=== PATIENT | female | born 1955 | race Caucasian/White ===

== ENCOUNTER 2016-08-11 16:06 | Inpatient (IN) | payer OTHER ==
--- NOTE | ~2016-08-11 | CR72 ---
[facility] A Service of [facility] & [facility] RADIOLOGY TEXT RESULTS PATIENT: ROBERTH DAVIS LOCATION: SED : 54 UNIT #: [id number] AGE: [address]: Yuri Berumen DO SEX: F ORDER DR: [id number] [place] [id number] E MR#: [id number] Acc #: [id number] NAME: ROBERTH DAVIS : 1955 SEX: F STUDY DATE/TIME: 08/11/2016 15:34 UNIT: SED ROOM: STUDY DESCRIPTION: CR Chest Single View Portable Attending Physician: Yuri Berumen Referring Physician: Yuri Berumen Ordering Physician: Yuri Berumen Primary Care Physician: Frederick Salinas M.D. MEDICAL IMAGING REPORT This report is preliminary unless electronic signature is present. EXAM Portable chest. INDICATIONS Shortness of breath and cough today. COMPARISON Comparison with 02/17/2015. FINDINGS There is bilateral interstitial thickening of pulmonary vascular prominence. This suggest the possibility of interstitial edema. Correlate clinically. Heart size stable. IMPRESSION Bilateral interstitial thickening and pulmonary vascular prominence suggesting interstitial edema. Correlate clinically. Dictated by... Fidencio Zhang M.D. THIS IS AN ELECTRONICALLY VERIFIED REPORT Fidencio Zhang M.D. at 08/12/2016 9:36 AM ANGE/ingrid TD: 08/11/2016 17:43 JOB #: [id number] MEDICAL IMAGING REPORT Page 1 of 1
--- NOTE | ~2016-08-11 | TH ---
Unit #: [id number] #: [id number] Patient: ROBERTH DAVIS [id number] [address] [address] [id number] I MR#: [id number] NAME: ROBERTH DAVIS : 1955 SEX: F STUDY DATE/TIME: 08/14/2016 UNIT: [facility] ROOM: 564 STUDY DESCRIPTION: Dobutamine stress test Attending Physician: Hank Swift M.D. Primary Care Physician: Frederick Salinas M.D. CARDIOLOGY REPORT PROCEDURE PERFORMED Dobutamine Cardiolite stress test. PROCEDURE Using technetium 99m-labeled Cardiolite, rest and stress SPECT images were obtained. Multiple SPECT images were obtained in various views, including horizontal and vertical long axis and short axis views of the left ventricle. Images were obtained by gated SPECT method. The patient was administered 11.99 mCi of Cardiolite at rest. The patient was administered 35.7 mCi of Cardiolite at peak dobutamine infusion. On the stress images, there is normal perfusion noted. The rest images show normal perfusion. Comparing the rest and stress images, there is no stress-induced ischemia noted. The left ventricular ejection fraction is calculated to be 61%. There is no focal wall motion abnormality seen. CONCLUSION 1. No stress-induced ischemia noted. 2. The left ventricular ejection fraction is calculated to be 61%. 3. There is no focal wall motion abnormality seen. 4. Normal dobutamine Cardiolite stress test. Dictated by... Amanda Meyer/kasia TD: 08/14/2016 14:54 JOB #: [id number] CARDIOLOGY REPORT Page 1 of 1 X Yue Tavera MD <ELECTRONICALLY SIGNED> 11/11/16 1429 CARDIOLOGY REPORT
--- NOTE | ~2016-08-11 | EKG ---
PATIENT: ROBERTH DAVIS UNIT #: [id number] Ventricular Rate: 108 BPM Atrial Rate: 108 BPM P-R Interval: 176 ms QRS Duration: 68 ms Q-T Interval: 334 ms QTC Calculation(Bezet): 447 ms P [place]: 63 degrees Calculated R [place]: 93 degrees Calculated T [place]: 53 degrees Diagnosis Line: Sinus tachycardia with Premature atrial complexes Diagnosis Line: Rightward axis Diagnosis Line: Septal infarct , age undetermined Diagnosis Line: Abnormal ECG Diagnosis Line: When compared with ECG of 17-FEB-2015 08:36, Diagnosis Line: Premature atrial complexes are now Present Diagnosis Line: Confirmed by VICTOR M MARMOLEJO MD ([id number]) on 08/17/2016 Diagnosis Line: 11:55:21 AM INTERPRETING MD: FRANCIE WATTS
--- NOTE | ~2016-08-11 | DS ---
Unit #: [id number] #: [id number] Patient: MIKKI CARRENO [id number] [address] [address] [id number] I MR#: [id number] NAME: MIKKI CARRENO. ROOM: 564 Age: 61 Sex: F Admission Date: 08/11/2016 : 1955 Discharge Date: 08/14/2016 Attending Physician: Hank Swift M.D. Primary Care Physician: Frederick Salinas M.D. DISCHARGE SUMMARY FINAL DIAGNOSES 1. Acute hypoxic respiratory failure. 2. Acute bronchitis. 3. Acute exacerbation of chronic obstructive pulmonary disease. 4. Left ventricular ejection fraction of 55% to 60%. 5. Atypical chest pain, acute myocardial infarction ruled out. Patient is scheduled for stress test today. 6. Hypertension. 7. Nicotine abuse. 8. Mild diastolic congestive heart failure with ejection fraction of 55% to 60%. 9. Hyperlipidemia. DISCHARGE MEDICATIONS 1. Albuterol and Atrovent nebulizer treatment q.i.d. and q.4 p.r.n. 2. Symbicort 160/4.5 at 2 puffs q.12 hours. 3. Albuterol MDI 2 puffs q.6 p.r.n. 4. Prednisone tapering dose which is 20 mg for 2 days, 10 mg for 2 days, then 5 mg every other day. 5. Flexeril 10 mg at bedtime. 6. Zestril 40 mg daily. 7. Lasix continue home dose. 8. Nicotine 14 mg daily. 9. Seroquel 300 mg at bedtime. 10. Remeron 30 mg daily. CONSULTATIONS 1. Dr. Rodriguez from pulmonary services. 2. Dr. Tavera from cardiology services. HOSPITAL COURSE Miss Mikki Carreno is a 61-year-old female who was admitted with chest pain and shortness of breath and was diagnosed with acute hypoxic respiratory failure, acute bronchitis, and COPD exacerbation. Patient is doing much better. She was treated with IV Solu-Medrol and nebulizer treatment. Patient's O2 is 88% on walking. We are going to arrange for home O2. Acute UT was ruled out. Dr. Tavera was consulted. There is a question of mild diastolic congestive heart failure. She did receive IV Lasix in the beginning and later on changed to home dose. Patient is scheduled for stress test today. If stress test is normal, patient will be discharged home. This was discussed with Dr. Tavera. The plan of care was discussed with patient at length and tobacco Unit #: [id number] #: [id number] Patient: MIKKI CARRENO cessation counseling done. PHYSICAL EXAMINATION VITAL SIGNS: Blood pressure is 117/63, respiratory rate 16, pulse 96, and temperature 98.2. CHEST: Fair air entry. CARDIOVASCULAR: S1 and S2 positive. Regular rhythm. ABDOMEN: Soft. DIAGNOSTIC STUDIES LABORATORY ON DISCHARGE: WBC 11.9, hemoglobin 16.4, hematocrit 50.1, and platelet count is 217,000. Sodium 134, potassium 4.1, chloride 99, BUN 21, and creatinine 1. Liver enzymes are stable. Blood cultures no growth. Lipid profile shows total cholesterol of 245, triglycerides 115, LDL 181, and HDL 41. Influenza A and B were negative. TSH 0.61. IMAGING: Venous Doppler showed negative exam. CT chest was done that showed moderate centrilobular emphysema with small amount of right middle lobe atelectasis or scarring, mild aneurysmal dilatation of the aortic root at 4.1 cm, and suspected pulmonary hypertension. DISCHARGE INSTRUCTIONS 1. Patient is being discharged home if stress test is okay in stable condition. 2. Medications as per medication reconciliation. 3. Follow up with primary care provider in one week. 4. Follow up with Cardiology as scheduled. 5. 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 6. Patient's LDL is pretty high. She needs to be compliant with her cholesterol medications. I am not sure whether she is on, but she needs to be started. We are going to start Lipitor 40 mg at bedtime. Lab workup needs to be repeated in four to six weeks. 7. Tobacco cessation counseling done, and tobacco patches are being written. 1. Dictated by... Naomie Balderas M.D. Lisbeth TD: 08/15/2016 16:43 JOB #: [id number] DISCHARGE SUMMARY Page 1 of 1 X Naomie Balderas MD DISCHARGE SUMMARY
--- NOTE | ~2016-08-11 | CT57 ---
[facility] A Service of [facility] & [facility] RADIOLOGY TEXT RESULTS PATIENT: ROBERTH DAVIS LOCATION: [facility] 564-01 : 54 UNIT #: [id number] AGE: [address]: Hank Swift MD SEX: F ORDER DR: [id number] [facility] [address] [place], [place] [address] [id number] I MR#: [id number] Acc #: [id number] NAME: ROBERTH DAVIS. : 1955 SEX: F STUDY DATE/TIME: 08/12/2016 16:00 UNIT: [facility] ROOM: [facility] STUDY DESCRIPTION: CT Chest Wo Cont Attending Physician: Hank Swift M.D. Ordering Physician: Dulce Maria Rodriguez M.D. Primary Care Physician: Frederick Salinas M.D. MEDICAL IMAGING REPORT This report is preliminary unless electronic signature is present EXAM CT chest without contrast HISTORY Shortness of air starting yesterday. History of hypertension, anxiety and depression. TECHNIQUE Axial images performed through the chest without contrast. Multiplanar reconstructed images reviewed at a workstation. This CT exam was performed with one or more of the following radiation dose reduction techniques: automatic exposure control, adjustment of mA and/or kV according to patient size, and iterative reconstruction. FINDINGS The pulmonary parenchyma demonstrates hyperlucent areas within the lung apices and to a lesser extent mid-lung zones compatible with underlying centrilobular emphysema. Small amount of atelectasis or fibrosis noted right middle lobe. No acute airspace disease or consolidation. No mass lesions. No effusions. Mild trachea-bronchiomegaly. Aortic atherosclerotic changes with mild aneurysmal dilatation of the ascending thoracic aorta measuring about 4.1 cm. Enlargement of the pulmonary arteries suggest pulmonary hypertension. Heart size within normal limits. Extensive mitral annulus calcifications. Upper abdomen unremarkable. Osseous structures, thoracic inlet appear normal. IMPRESSION 1. Moderate centrilobular emphysema with a small amount of right middle lobe atelectasis or scarring. No acute airspace disease. 2. Mild aneurysmal dilatation of the aortic root at 4.1 cm[address] [facility] A Service of [facility] & [facility] RADIOLOGY TEXT RESULTS PATIENT: ROBERTH DAVIS LOCATION: [place] [address]- : [birth year] UNIT #: [id number] AGE: [address]: Hank Swift MD SEX: F ORDER DR: 3. Suspected pulmonary hypertension. Dictated by... Negro Zhang M.D. THIS IS AN ELECTRONICALLY VERIFIED REPORT Negro Zhang M.D. at 08/12/2016 8:37 PM Roscoe TD: 08/12/2016 19:28 JOB #: [id number] MEDICAL IMAGING REPORT Page 1 of 1 COPY
--- NOTE | ~2016-08-11 | EKG ---
PATIENT: ROBERTH DAVIS UNIT #: [id number] Ventricular Rate: 112 BPM Atrial Rate: 112 BPM P-R Interval: 156 ms QRS Duration: 82 ms Q-T Interval: 326 ms QTC Calculation(Bezet): 444 ms P [place]: 39 degrees Calculated R [place]: 95 degrees Calculated T [place]: 45 degrees Diagnosis Line: Sinus tachycardia with PAC's Diagnosis Line: Rightward axis Diagnosis Line: Nonspecific ST and T wave abnormality Diagnosis Line: Abnormal ECG Diagnosis Line: When compared with ECG of 12-AUG-2016 12:43, Diagnosis Line: Premature atrial complexes are no longer Present Diagnosis Line: Confirmed by LILIAN CUEVA MD ([id number]) on Diagnosis Line: 08/13/2016 12:53:13 PM INTERPRETING MD: ROSA
--- NOTE | ~2016-08-11 | CO ---
Unit #: [id number] #: [id number] Patient: ROBERTH DAVIS [id number] [address] [place], [place] [address] [id number] I MR#: [id number] NAME: ROBERTH DAVIS ROOM: 564 Age: 61 Sex: F Admission Date: 08/11/2016 : 1955 Attending Physician: Hank Swift M.D. Primary Care Physician: Frederick Salinas M.D. CONSULTATION REPORT CHIEF COMPLAINT Shortness of breath. HISTORY OF PRESENT ILLNESS This patient basically is a 61-year-old female with past medical history of likely COPD, who presented with complaint of shortness of breath, increasing sputum production for the last two to three days. Symptoms have been getting worse and was admitted and impression of COPD exacerbation. I am seeing the patient at bedside, complaining of shortness of breath. The patient denies any nausea, vomiting, diarrhea. PAST MEDICAL HISTORY COPD, anxiety, depression. SOCIAL HISTORY Positive smoking. No alcohol. No drug abuse. FAMILY HISTORY None as per record. ALLERGIES Have been reviewed. MEDICATION As per MAR, has been reviewed. REVIEW OF SYSTEMS Positive pallor. No edema. No signs of any jaundice. The rest are per history of present illness. The rest of a 12-point review of systems has been reviewed and is negative. PHYSICAL EXAMINATION VITAL SIGNS: Temperature 98. Pulse 87. Respiration 12. Blood pressure 130/70. NEUROLOGIC: Awake, alert, oriented. No neuro deficit. HEENT: PERRLA. NECK: Supple. CHEST: Bilateral air entry. Bilateral mild rhonchi. GASTROINTESTINAL: Nontender. Soft. Bowel sounds positive. EXTREMITIES: No edema. SKIN: No rash. LYMPHATIC: No lymphadenopathy. ASSESSMENT AND PLAN Unit #: [id number] #: [id number] Patient: ROBERTH DAVIS Acute exacerbation of COPD, acute bronchitis, acute hypoxic respiratory failure. Rule out pneumonia. The plan is to continue IV steroid, IV antibiotic, bronchodilator, GI and DVT prophylaxis, 2-D echo, Cardiology consultation. Please see orders for detailed plan. Dictated by... Amanda Lei TD: 08/12/2016 17:50 JOB #: [id number] CONSULTATION REPORT Page 1 of 1 X Dulce Maria Rodriguez MD CONSULTATION REPORT
--- NOTE | ~2016-08-11 | ST ---
Unit #: [id number] #: [id number] Patient: ROBERTH DAVIS [id number] [address] [address] [id number] I MR#: [id number] NAME: ROBERTH DAVIS : 1955 SEX: F STUDY DATE/TIME: 08/14/2016 UNIT: [facility] ROOM: 564 STUDY DESCRIPTION: Lexiscan stress test Attending Physician: Hank Swift M.D. Primary Care Physician: Frederick Salinas M.D. CARDIOLOGY REPORT PROCEDURE PERFORMED Lexiscan Cardiolite stress test. PROCEDURE Baseline EKG - Normal sinus rhythm with a rate of 98 beats per minute with premature atrial complexes. Rightward axis deviation. Lexiscan was injected, immediately followed by Cardiolite. The patient had no complaint of chest pain or palpitations. Complained of slight dizziness. EKG during Lexiscan showed no ST-T wave abnormalities. Was noted for frequent premature atrial complexes and isolated premature ventricular complex. There was a 3-beat run of PSVT at 150 beats per minute. Maximum blood pressure response was 126/77 mmHg. At the end of recovery blood pressure was 115/76 mmHg. Please correlate these results with nuclear images. Dictated by... London Ybarra A.P.R.N. for Amanda Meyer/kasia TD: 08/14/2016 14:05 JOB #: [id number] CARDIOLOGY REPORT Page 1 of 1 X London Ybarra APRN CARDIOLOGY REPORT
--- NOTE | ~2016-08-11 | EKG ---
PATIENT: ROBERTH DAVIS UNIT #: [id number] Ventricular Rate: 101 BPM Atrial Rate: 101 BPM P-R Interval: 164 ms QRS Duration: 68 ms Q-T Interval: 338 ms QTC Calculation(Bezet): 438 ms P Bishop: 61 degrees Calculated R [place]: 106 degrees Calculated T Bishop: 63 degrees Diagnosis Line: Sinus tachycardia with Premature atrial complexes Diagnosis Line: Rightward axis Diagnosis Line: Septal infarct , age undetermined Diagnosis Line: Abnormal ECG Diagnosis Line: When compared with ECG of 17-FEB-2015 08:36, Diagnosis Line: Premature atrial complexes are now Present Diagnosis Line: QRS axis Shifted right Diagnosis Line: QT has shortened Diagnosis Line: Confirmed by BALBINA WATTS, STEVEN ([id number]) on 08/12/2016 Diagnosis Line: 6:41:16 PM INTERPRETING MD: BALBINA WATTS
--- NOTE | ~2016-08-11 | HP ---
Unit #: [id number] #: [id number] Patient: ROBERTH DAVIS [id number] [address] [address] [id number] I MR#: [id number] NAME: ROBERTH DAVIS. ROOM: 564 Age: 61 Sex: F Admission Date: 08/11/2016 : 1955 Attending Physician: Hank Swift M.D. Primary Care Physician: Frederick Salinas M.D. HISTORY AND PHYSICAL CHIEF COMPLAINT Shortness of breath. HISTORY OF PRESENTING ILLNESS A 61-year-old female who was brought by paramedics because of the shortness of breath and wheezing. According to patient, it was just a few hours prior to coming to hospital. She started having shortness of breath and wheezing. The patient was given some Solu-Medrol nebulizer treatment by EMS. On arrival, at home, the patient's pulse ox was 88%. The patient had trouble breathing. She did not complain of chest pain. The patient did not complain of palpitations. The patient does not use oxygen at home. The patient does not have a nebulizer treatment at home. She has some inhalers at home. She has had cough recently. No history of fevers, chills or regurg. PAST MEDICAL HISTORY 1. Hypertension. 2. Diastolic congestive heart failure. 3. COPD. 4. Depression. PAST SURGICAL HISTORY History of knee surgery and oral surgery. SOCIAL HISTORY The patient is a smoker, has been smoking for more than 44 years. She was smoking more than one pack but, at this time, she has cut down to one pack per day. She also uses marijuana off and on. No history of IV drug abuse. No history of alcohol abuse. Primary care provider is Dr. Salinas. FAMILY HISTORY Not significant. HOME MEDICATIONS 1. Albuterol one inhaler q.4 p.r.n. 2. Lasix 10 mg daily. 3. Breo one inhaler daily. 4. Zestril 40 mg daily. 5. Norvasc 10 mg at bedtime. 6. Remeron 30 mg at bedtime. 7. Seroquel 300 mg at bedtime. 8. Flexeril 10 mg at bedtime. REVIEW OF SYSTEMS Unit #: [id number] #: [id number] Patient: ROBERTH DAVIS As per history of presenting illness. In addition, there is no history of any dizziness or syncopal episode. No history of fever, chills or regurg. No history of fever, chills or regurg. No history of ears/nose/throat problem, although she does get allergic rhinitis a lot. No complaint of abdominal pain. No complaint of abdominal pain. No complaint of nausea, vomiting, constipation or diarrhea. PHYSICAL EXAMINATION The patient was evaluated in room 564. VITAL SIGNS: Blood pressure 115/73. Respiratory rate 16. Pulse 86. Temperature 98.3. HEENT: Head is normocephalic. Eye movements are normal. Pale conjunctivae. NECK: Supple. No carotid bruit. No JVD elevation. CHEST: Decreased air entry bilateral. Rhonchi are present bilateral. CARDIOVASCULAR: S1, S2 positive. Regular rhythm. ABDOMEN: Nontender. Soft to touch. Bowel sounds are positive in all quadrants. EXTREMITIES: Negative edema. CENTRAL NERVOUS SYSTEM: Awake, alert, oriented x3. No focal neurological deficit. SKIN: No skin rashes. DIAGNOSTIC STUDIES LABORATORY: WBC 19.6, hemoglobin 16.7, hematocrit 50.2, platelet count 270. Troponin less than 0.05. Sodium 137, potassium 4.6, chloride 101, BUN 14, creatinine 0.9. Liver enzymes are normal. BNP elevated to 182. ABG, on admission, on room air, showed pH 7.34, pCO2 42, pO2 58.0, bicarb 21.9, oxygen saturation 86%. A repeat BNP on (1) was 376. Influenza A and B were negative. TSH was done which was 0.61. ASSESSMENT The patient is being admitted to telemetry unit with the diagnosis of: 1. Acute hypoxic respiratory failure. 2. Acute COPD exacerbation. 3. Acute bronchitis. 4. Mild diastolic congestive heart failure. 5. Hypertension. 6. Tobacco abuse. PLAN Admit to telemetry unit. Cardiology has been consulted. The patient has been placed on IV Lasix. Dr. Rodriguez has been consulted. The patient is on IV Solu-Medrol q.6 hourly and antibiotics. Continue mini neb treatment q.i.d. and q.4 p.r.n. Oxygen to keep saturation above 94%. DVT and GI prophylaxis is being start. Tobacco cessation counseling has been done. Nicotine patches will be prescribed. Plan of care has been discussed with patient at length. She does verbalize understanding. Dictated by Amanda Man TD: 08/13/2016 14:04 JOB #: [id number] Unit #: [id number] #: [id number] Patient: RYANROBERTH L HISTORY AND PHYSICAL Page 1 of 1 X Naomie Balderas MD HISTORY AND PHYSICAL
--- NOTE | ~2016-08-11 | CO ---
Unit #: [id number] #: [id number] Patient: ROBERTH DAVIS [id number] [address] [address] [id number] I MR#: [id number] NAME: ROBERTH DAVIS. ROOM: 564 Age: 61 Sex: F Admission Date: 08/11/2016 : 1955 Attending Physician: Hank Swift M.D. Primary Care Physician: Frederick Salinas M.D. Consultation Date: 08/12/2016 CONSULTATION REPORT REASON FOR CONSULTATION Questionable congestive heart failure. HISTORY OF PRESENT ILLNESS This is a 61-year-old white female who came to the emergency room because of shortness of breath and wheezing. She developed a cold on Sunday or Sunday of last week. She had a cough with brown to yellow sputum. It was felt she had a slight fever. She took Tylenol for relief. Yesterday her dyspnea worsened, therefore she presented to the emergency room for evaluation. She denied chest pain, palpitations or dizziness. Does report a right lower extremity edema but no paroxysmal nocturnal dyspnea or orthopnea. She has risk factors for ischemic heart disease and includes hypertension and nicotine abuse. No prior cardiac testing. PAST MEDICAL HISTORY 1. Hypertension. 2. COPD. 3. Nicotine abuse. PAST SURGICAL HISTORY 1. Knee surgery. 2. Oral surgery. SOCIAL HISTORY The patient continues to smoke a pack of cigarettes a day, cut down from close to two packs a day. She denies alcohol but uses marijuana on occasion. FAMILY HISTORY Negative for coronary artery disease. ALLERGIES Penicillin and tetracycline. HOME MEDICATIONS 1. Albuterol q.4 hours p.r.n. 2. Furosemide 10 mg daily. 3. Breo Ellipta 1 inhalation daily. 4. Lisinopril 20 mg daily. 5. Norvasc 10 mg q.h.s. REVIEW OF SYSTEMS CONSTITUTIONAL: Complains of subjective fever but no chills. Reports no weight gain or weight loss. Unit #: [id number] #: [id number] Patient: ROBERTH DAVIS HEENT: No headache, hearing or vision changes, difficulty with swallowing. No dizziness. CARDIOVASCULAR: Has no symptoms of angina. Denies palpitations. No paroxysmal nocturnal dyspnea or orthopnea. Denies syncope or near syncope. RESPIRATORY: Positive for dyspnea and productive cough with yellow to brown sputum. No hemoptysis. GASTROINTESTINAL: No abdominal pain, nausea, or vomiting. No constipation or melena. EXTREMITIES: Positive for right lower extremity edema. PHYSICAL EXAMINATION VITAL SIGNS: Blood pressure 115/73, heart rate 86, temperature 98.3. GENERAL: This is a pleasant 61-year-old mildly obese, white female, who is in no acute respiratory distress. NEUROLOGIC: She is awake, alert, and oriented. There are no focal weaknesses. NECK: Trachea is midline. No thyromegaly or lymphadenopathy. No jugular venous distention. HEART: S1, S2, heart sounds are normal. No murmurs, no rubs or clicks. Regular rate and rhythm. LUNGS: With scattered rhonchi with faint wheezes both lungs. ABDOMEN: Soft and nontender with bowel sounds are present. EXTREMITIES: With 1+ right lower extremity edema. No left lower extremity edema. DIAGNOSTIC STUDIES LABORATORY RESULTS: Glucose 146, BUN 21, creatinine 1.0, sodium 134, potassium 4.1. CK total 62. Troponin less than 0.03. BNP 376. White count 12.5, hemoglobin 16.0, hematocrit 49.0, platelet count 195. IMAGING STUDIES: Chest x-ray shows interstitial edema. CARDIOVASCULAR STUDIES: Electrocardiogram - EKG shows sinus tachycardia with a rate of 112 BPM with rightward axis deviation. Pulmonary disease pattern. There is frequent premature atrial complexes. Poor R wave progression. IMPRESSION 1. COPD exacerbation. 2. Questionable bronchitis. 3. Questionable mild congestive heart failure. 4. Hypertension. PLAN 1. Cardiology was consulted for possible congestive heart failure. Will check 2D echocardiogram to evaluate left ventricular systolic function. 2. Patient already started on IV diuretics. Will continue. 3. TSH and lipid profile will be checked. 4. Cause of lower extremity edema may be secondary to Norvasc. Will discontinue. 5. Check ultrasound of the lower extremities to rule out deep vein thrombosis. 6. Repeat cardiac enzymes and troponins. 7. Will follow the patient with you. Thank you for allowing us to assist with this patient's care. Unit #: [id number] #: [id number] Patient: ROBERTH DAVIS Dictated by... Ivana Sharif.P.RAlberN. for S. Amanda Gay/naldo TD: 08/15/2016 07:21 JOB #: [id number] CC: [facility] CONSULTATION REPORT Page 1 of 1 X London Ybarra APRN CONSULTATION REPORT
--- NOTE | ~2016-08-11 | US85 ---
[facility] A Service of [facility] RADIOLOGY TEXT RESULTS PATIENT: ROBERTH DAVIS LOCATION: [facility] : 53 UNIT #: [id number] AGE: [address]: Hank Swift MD SEX: F ORDER DR: [id number] [facility] [address] [place], [place] [address] [id number] I MR#: [id number] Acc #: [id number] NAME: ROBERTH DAVIS. : 1955 SEX: F STUDY DATE/TIME: 08/12/2016 UNIT: [facility] ROOM: [facility] STUDY DESCRIPTION: US LE Veins Unilat or Ltd Stdy Attending Physician: Hank Swift M.D. Primary Care Physician: Frederick Salinas M.D. MEDICAL IMAGING REPORT This report is preliminary unless electronic signature is present EXAM Right leg vein Doppler 08/12 at 1223 hours INDICATIONS Leg swelling for about the last 8 months. TECHNIQUE Venous ultrasound examination of the right lower extremity was performed using grayscale, spectral Doppler and color flow Doppler imaging. FINDINGS The examination is negative. There is no evidence of right lower extremity deep venous thrombus from the groin to the lower calf. Visualized greater saphenous vein is also patent. IMPRESSION Negative examination. No evidence of right lower extremity deep venous thrombosis. Dictated by... Johann Ryan Jr., M.D. THIS IS AN ELECTRONICALLY VERIFIED REPORT Johann Ryan Jr., M.D. at 08/15/2016 8:00 AM MARLI/haydee TD: 08/12/2016 16:04 JOB #: [id number] [facility] A Service [facility] RADIOLOGY TEXT RESULTS PATIENT: ROBERTH DAVIS LOCATION: [facility] : 53 UNIT #: [id number] AGE: [address]: Hank Swift MD SEX: F ORDER DR: MEDICAL IMAGING REPORT Page 1 of 1 COPY
[2016-08-11 15:30] LABS: BASOPHIL# 0.1 X10e3 (0-0.3); BASOPHIL% 0.5 % (0-2.5); EOSINOPHIL% 0.1 % (0.0-7.0); HEMATOCRIT 50.2 % (35.0-45.0); HEMOGLOBIN 16.7 gm/dL (12.0-16.0); LYMPHOCYTE# 0.4 X10e3 (1.0-3.5); LYMPHOCYTE% 2.2 % (17.0-45.0); MEAN CELL VOLUME 94.6 FL (83-96); MEAN CORPUSCULAR HEMOGLOBIN 31.5 PG (28-34); MEAN CORPUSCULAR HGB CONC 33.3 g/dL (30-36); MEAN PLATELET VOLUME 9.8 FL (6.5-11.5); MONOCYTE# 0.6 X10e3 (0-1.0); MONOCYTE% 3.3 % (3.0-12.0); NEUTROPHIL# 18.4 X10e3 (1.5-7.1); NEUTROPHIL% 93.9 % (40-75); PLATELET COUNT 217 X10e3 (140-420); RED BLOOD COUNT 5.31 X10e (3.90-5.30); RED CELL DISTRIBUTION WIDTH 13.2 % (11.0-15.5); WHITE BLOOD COUNT 19.6 X10e3 (4.0-10.5)
[2016-08-11 15:40] LABS: DIFF IND NO
[2016-08-11 15:43] LABS: POC - CKMB 1.4 ng/mL (0.0-7.9); POC - TROPONIN <0.05 ng/mL (<=0.05)
[2016-08-11 15:46] LABS: INR 1.1; PROTHROMBIN TIME (PATIENT) 12.6 SECONDS (9.5-12.4)
[2016-08-11 15:53] LABS: ALBUMIN SERUM 4.3 g/dL (3.5-5.0); BILIRUBIN, DIRECT 0.3 mg/dL (0.0-0.2); BILIRUBIN,INDIRECT 0.5 mg/dL (0.0-0.9); BILIRUBIN,TOTAL 0.8 mg/dL (0.2-2.0); BUN/CREATININE RATIO 15.55; CALCIUM SERUM 9.4 mg/dL (8.4-10.2); CREATININE SERUM 0.9 mg/dL (0.6-1.4); GLOM FILT RATE Estimated 68.6 mL/min (>60); PARTIAL THROMBOPLASTIN TIME 30.3 SECONDS (25.6-38.1); POTASSIUM 4.6 mmol/L (3.5-5.1); PROTEIN TOTAL SERUM 7.2 g/dL (6.0-8.3)
[~2016-08-11 16:06] MED LIST: ALBUTEROL17 GM INH; ALBUTEROL20 ml INH; BREO ELLIPTA I1 EACH INH; LASIX PO; LISINOPRIL PO; LOSARTAN-HCTZ1 EAC2 PO; MONOPRIL10 M1 DOB; MONOPRIL10 M1 PO; NORVASC PO; PHENERGAN/CODEINE PO; PREDNISONE10 MG PO; SEROQUEL XR200 MG PO; ZITHROMAX PO
[2016-08-11 16:19] LABS: ARTERIAL BLOOD GAS CARBOXY HB 6.7 %sat (0.0-9.0); ARTERIAL BLOOD GAS HCO3 21.9 mmol/L
[2016-08-11 16:25] LABS: ARTERIAL BLOOD GAS MET HB 0.5 %sat (0.0-2.0); ARTERIAL DRAW? YES
[2016-08-11 16:26] LABS: ARTERIAL BLOOD GAS ART SITE RIGHT RADIAL
[2016-08-11] MEDS ORDERED: REMERON30 MG PO (20:26)
[2016-08-11] MEDS ORDERED: SEROQUEL300 MG PO (20:26)
[2016-08-11] MEDS ORDERED: FLEXERIL10 MG PO (20:28)
[2016-08-12 05:21] LABS: MEAN CELL VOLUME 95.3 FL (83-96); MEAN CORPUSCULAR HGB CONC 32.5 g/dL (30-36); MEAN PLATELET VOLUME 10.4 FL (6.5-11.5); RED BLOOD COUNT 5.15 X10e (3.90-5.30); RED CELL DISTRIBUTION WIDTH 13.8 % (11.0-15.5); WHITE BLOOD COUNT 12.5 X10e3 (4.0-10.5)
[2016-08-12 05:56] LABS: BUN/CREATININE RATIO 14.44; CALCIUM SERUM 9.1 mg/dL (8.4-10.2); CREATININE SERUM 0.9 mg/dL (0.6-1.4); GLOM FILT RATE Estimated 68.6 mL/min (>60); POTASSIUM 4.3 mmol/L (3.5-5.1)
[2016-08-12 12:53] LABS: CK TOTAL 35 IU/L (26-140)
[2016-08-12 16:32] LABS: INFLUENZA A NEG (NEG); INFLUENZA B NEG (NEG)
[2016-08-12 18:51] LABS: MB 3.7 ng/ml
[2016-08-13 06:27] LABS: HEMATOCRIT 49.1 % (35.0-45.0); HEMOGLOBIN 15.8 gm/dL (12.0-16.0); MEAN CELL VOLUME 95.3 FL (83-96); MEAN CORPUSCULAR HEMOGLOBIN 30.8 PG (28-34); MEAN CORPUSCULAR HGB CONC 32.3 g/dL (30-36); RED BLOOD COUNT 5.15 X10e (3.90-5.30); RED CELL DISTRIBUTION WIDTH 13.4 % (11.0-15.5); WHITE BLOOD COUNT 14.2 X10e3 (4.0-10.5)
[2016-08-13 07:17] LABS: ALBUMIN SERUM 3.5 g/dL (3.5-5.0); BILIRUBIN,TOTAL 0.7 mg/dL (0.2-2.0); GLOM FILT RATE Estimated 60.4 mL/min (>60); POTASSIUM 4.1 mmol/L (3.5-5.1); PROTEIN TOTAL SERUM 6.4 g/dL (6.0-8.3)
[2016-08-14 05:54] LABS: HEMATOCRIT 50.1 % (35.0-45.0); HEMOGLOBIN 16.4 gm/dL (12.0-16.0); MEAN CELL VOLUME 94.7 FL (83-96); MEAN CORPUSCULAR HEMOGLOBIN 30.9 PG (28-34); MEAN CORPUSCULAR HGB CONC 32.7 g/dL (30-36); MEAN PLATELET VOLUME 9.8 FL (6.5-11.5); RED BLOOD COUNT 5.29 X10e (3.90-5.30); RED CELL DISTRIBUTION WIDTH 13.4 % (11.0-15.5); WHITE BLOOD COUNT 11.9 X10e3 (4.0-10.5)
[2016-08-14 10:29] LABS: CHOLESTEROL 245 mg/dL (0-200); HDL CHOLESTEROL 41 mg/dL (35-95); LDL/HDL RATIO 4 RATIO (0-4); TRIGLYCERIDES 115 mg/dL (10-160)
[2016-08-14 10:30] LABS: LDL CHOLESTEROL 181 mg/dL ([, -130])
[2016-08-14] MEDS ORDERED: NICOTINE TRANSD14 MG TOP (16:05)
[2016-08-14] MEDS ORDERED: LIPITOR40 MG PO (16:06)
[2016-08-14] MEDS ORDERED: SYMBICORT INH (16:06)
[2016-08-14] MEDS ORDERED: ALBUTEROL17 GM INH (16:09)
[2016-08-14] MEDS ORDERED: ALBUTEROL/ATROVENT NEB (16:12)
== END 2016-08-14 18:40 | disposition home or self-care (01) | DRG 291 ==
LOC: SED 16:06 → C5C 17:10
PROVIDERS: Emergency Medicine; Hospitalist; Internal Medicine; Internal Medicine Cardiovascular Disease
PROC: B246ZZZ Ultrasonography of Right and Left Heart (ICD-10-PCS; principal; 2016-08-12)
DX: I11.0 Hypertensive heart disease with heart failure (principal); J96.01 Acute respiratory failure with hypoxia; J44.1 Chronic obstructive pulmonary disease with (acute) exacerbation; J44.0 Chronic obstructive pulmonary disease with (acute) lower respiratory infection; I50.33 Acute on chronic diastolic (congestive) heart failure; J20.9 Acute bronchitis, unspecified; F17.210 Nicotine dependence, cigarettes, uncomplicated; Z88.0 Allergy status to penicillin; E78.5 Hyperlipidemia, unspecified
CPT/HCPCS: 36415; 36600; 71010; 71250; 78452; 80048; 80053; 80061; 80076; 82550; 82553; 82803; 83880; 84443; 84484; 85025; 85027; 85610; 85730; 87040; 87804; 93005; 93017; 93306; 93971; 94640; 94664; 94760; 96374; 99285; A9500; J0696; J1650; J1940; J2785; J2930

== ENCOUNTER 2016-09-05 15:23 | Inpatient (IN) | payer OTHER ==
--- NOTE | ~2016-09-05 | CR72 ---
[facility] A Service of [facility] RADIOLOGY TEXT RESULTS PATIENT: ROBERTH DAVIS LOCATION: [address] : [birth year] UNIT #: [id number] AGE: [address]: Naomie Balderas MD SEX: F ORDER DR: [id number] [facility] [address] [place], [place] [address] [id number] E MR#: [id number] Acc #: [id number] NAME: ROBERTH DAVIS : 1955 SEX: F STUDY DATE/TIME: 09/05/2016 16:07 UNIT: [facility] ROOM: STUDY DESCRIPTION: CR Chest Single View Portable Attending Physician: Daryn Cardenas M.D. Ordering Physician: Daryn Cardenas M.D. Primary Care Physician: Frederick Salinas M.D. MEDICAL IMAGING REPORT This report is preliminary unless electronic signature is present EXAM Portable chest, 09/05/2016. COMPARISON 08/11/2016 HISTORY Chest pain and short of air today. FINDINGS A portable view of the chest was obtained. The heart is mildly enlarged. There is a small left pleural effusion. The lungs are clear, and the bones are normal. IMPRESSION Small left pleural effusion and mild cardiomegaly. Otherwise, normal. Dictated by... Kirill Faustin M.D. THIS IS AN ELECTRONICALLY VERIFIED REPORT Kirill Faustin M.D. at 09/06/2016 8:41 AM LAZARA/regine TD: 09/05/2016 17:00 JOB #: [id number] MEDICAL IMAGING REPORT Page 1 of 1 COPY
--- NOTE | ~2016-09-05 | CR71 ---
[facility] A Service of [facility] RADIOLOGY TEXT RESULTS PATIENT: ROBERTH DAVIS LOCATION: [place] [address] : 53 UNIT #: [id number] AGE: [address]: Naomie Balderas MD SEX: F ORDER DR: [id number] [facility] [address] [place], [place] [address] [id number] I MR#: [id number] Acc #: [id number] NAME: ROBERTH DAVIS : 1955 SEX: F STUDY DATE/TIME: 09/06/2016 UNIT: [facility] ROOM: [facility] STUDY DESCRIPTION: CR Chest Single View Attending Physician: Naomie Balderas M.D. Ordering Physician: Naomie Balderas M.D. Primary Care Physician: Frederick Salinas M.D. MEDICAL IMAGING REPORT This report is preliminary unless electronic signature is present EXAM Chest portable 09/06/2016 11:54 hours HISTORY Central line placement today, shortness of air. COMPARISON 09/06/2016 07:12 hours FINDINGS Portable upright chest demonstrates a new right IJ catheter with tip in the mid SVC. There is no pneumothorax. There is stable cardiomegaly, elevation of the left hemidiaphragm, bilateral coarse interstitial edema and blunting of the left costophrenic sulcus. IMPRESSION 1. New right IJ catheter tip terminates in the mid SVC. There is no pneumothorax. 2. Stable cardiomegaly, coarse interstitial edema and left effusion. No change from earlier today at 07:12 hours. Dictated by... Solange Diaz M.D. THIS IS AN ELECTRONICALLY VERIFIED REPORT Solange Diaz M.D. at 09/06/2016 2:29 PM SMM/keli TD: 09/06/2016 12:17 JOB #: [id number] MEDICAL IMAGING REPORT Page 1 of 1 COPY
--- NOTE | ~2016-09-05 | CO ---
Unit #: [id number] #: [id number] Patient: ROBERTH DAVIS [id number] [address] [place], [place] [address] [id number] I MR#: [id number] NAME: ROBERTH DAVIS ROOM: [facility] Age: 61 Sex: F Admission Date: 09/05/2016 : 1955 Attending Physician: Naomie Balderas M.D. Primary Care Physician: Frederick Salinas M.D. Consultation Date: 09/05/2016 CONSULTATION REPORT REASON FOR CONSULTATION COPD exacerbation. CHIEF COMPLAINT Shortness of breath. 61-year-old female with past medical history of hypertension, diastolic heart failure, COPD, depression, presented to my office and was complaining of shortness of breath with elevated heart rate and sent her to the emergency room. She has been found to have pleural effusion and new atrial fibrillation with rapid ventricular rate. I am seeing her at the bedside. She is complaining of shortness of breath. REVIEW OF SYSTEMS Positive pallor. No edema, no cyanosis, no jaundice. The rest as per History of Present Illness. The rest of the twelve point review of systems has been reviewed and is negative. PAST MEDICAL HISTORY As described above. SURGICAL HISTORY Positive smoking. No alcohol, no drug abuse. FAMILY HISTORY None as per record. MEDICATIONS Has been reviewed. PHYSICAL EXAMINATION VITAL SIGNS: Temperature 98, pulse 110, respirations 16, blood pressure 110/70. NEUROLOGICAL: Awake, alert, oriented. No neuro deficit. HEENT: PERRLA. NECK: Supple. No JVD. CHEST: Bilateral air entry, bilateral mild rhonchi. GI: Nontender, soft. Bowel sounds positive. EXTREMITIES: No edema. SKIN: No rashes, no ulcers. LYMPHATIC: No lymphadenopathy. Unit #: [id number] #: [id number] Patient: ROBERTH DAVIS DIAGNOSTIC STUDIES IMAGING: Chest x-ray - small left pleural effusion with mild cardiomegaly. LABORATORY: The rest of the labs have been reviewed. ASSESSMENT AND PLAN 1. Acute hypoxic respiratory failure. 2. Acute exacerbation of chronic obstructive pulmonary disease. 3. Acute bronchitis. 4. Rapid atrial fibrillation. Plan is to continue Cardizem as per cardiology. Continue to monitor patient. Continue Solu-Medrol. Will add p.o. antibiotics. GI and DVT prophylaxis. Please see orders for detailed plan. Thank you very much for this consultation. We will continue to follow the patient. Dictated by... Amanda Lei TD: 09/07/2016 05:16 JOB #: [id number] CONSULTATION REPORT Page 1 of 1 X Dulce Maria Rodriguez MD X CONSULTATION REPORT
--- NOTE | ~2016-09-05 | DS ---
Unit #: [id number] #: [id number] Patient: ROBERTH DAVIS [id number] [address] [address] [id number] I MR#: [id number] NAME: ROBERTH DAVIS. ROOM: 560 Age: 61 Sex: F Admission Date: 09/05/2016 : 1955 Discharge Date: 09/11/2016 Attending Physician: Naomie Balderas M.D. Primary Care Physician: Frederick Salinas M.D. DISCHARGE SUMMARY DISCHARGE DIAGNOSES 1. Acute exacerbation of chronic obstructive pulmonary disease. 2. Atrial fibrillation with rapid ventricular response. 3. Continued tobacco use. 4. Acute kidney injury. 5. CONSULTING PHYSICIANS ON THIS HOSPITAL STAY 1. Dr. Rodriguez, pulmonary. 2. Dr. Devlin, nephrology. 3. Dr. Tavera. DIAGNOSTIC STUDIES IMAGING: Chest x-ray on admission - Small left pleural effusion. Mild cardiomegaly. Last chest x-ray from September 07 - No pneumothorax. Small bilateral pleural effusions. HISTORY OF PRESENT HOSPITAL STAY Please refer to H and P done by me for initial presentation on this female. ACTIVE PROBLEMS AND DIAGNOSES ON THIS HOSPITAL STAY A fib with RVR, status post cardiology evaluation. Started on sotalol. Started on Pradaxa. Currently stable from cardiology standpoint to be discharged. Outpatient followup with cardiology. Acute exacerbation of COPD. Was treated with bronchodilator, IV steroids. Currently switching to tapering dose of p.o. steroids per Dr. Rodriguez. Stable to be discharged. Tobacco use. Counselled on the importance of quitting tobacco and quitting smoking on multiple occasions by [place] and other consultants. Acute kidney injury. Resolved. Per Dr. Devlin, stable to be discharged. Discharge date BUN and creatinine 26 and 1.2. DISCHARGE MEDICATIONS 1. Tapering dose of prednisone. 2. Pradaxa 150 mg p.o. b.i.d. 3. Midodrine 5 mg p.o. t.i.d. 4. Sotalol 40 mg p.o. b.i.d. 5. Lanoxin 0.25 mg p.o. daily. Unit #: [id number] #: [id number] Patient: ROBERTH DAVIS 6. Lasix 40 mg daily. 7. Lipitor 40 mg at bedtime. 8. Flexeril 10 mg at bedtime. 9. Albuterol Combivent inhaler p.r.n. shortness of air. 10. Ventolin p.r.n. shortness of air. 11. Symbicort 2 puffs inhalation b.i.d. 12. Tylenol p.r.n. 13. Remeron 30 mg at bedtime. 14. Seroquel 300 mg at bedtime. 15. Nicotine patch daily. 16. Breo Ellipta inhaler daily. FOLLOW-UP 1. Patient to follow up with primary care physician in 2-3 days. 2. Outpatient followup with cardiology and pulmonary. Dictated by... Amanda Coyle/kasia TD: 09/11/2016 13:42 JOB #: [id number] DISCHARGE SUMMARY Page 1 of 1 X Hank Swift MD X DISCHARGE SUMMARY
--- NOTE | ~2016-09-05 | EKG ---
PATIENT: ROBERTH DAVIS UNIT #: [id number] Ventricular Rate: 113 BPM Atrial Rate: 90 BPM QRS Duration: 80 ms Q-T Interval: 324 ms QTC Calculation(Bezet): 444 ms Calculated R [place]: 106 degrees Calculated T [place]: 88 degrees Diagnosis Line: Atrial fibrillation with rapid ventricular Diagnosis Line: response Diagnosis Line: Rightward axis Diagnosis Line: Low voltage QRS Diagnosis Line: Poor R wave progression questionable lead position Diagnosis Line: or body habitus Diagnosis Line: Abnormal ECG Diagnosis Line: When compared with ECG of 07-SEP-2016 06:07, Diagnosis Line: (unconfirmed) Diagnosis Line: Nonspecific T wave abnormality, worse in Anterior Diagnosis Line: leads Diagnosis Line: Confirmed by LILIAN CUEVA MD ([id number]) on Diagnosis Line: 09/08/2016 7:41:24 AM INTERPRETING MD: ROSA
--- NOTE | ~2016-09-05 | EKG ---
PATIENT: ROBERTH DAVIS UNIT #: [id number] Ventricular Rate: 154 BPM Atrial Rate: 112 BPM QRS Duration: 70 ms Q-T Interval: 294 ms QTC Calculation(Bezet): 470 ms Calculated R [place]: 98 degrees Calculated T [place]: 124 degrees Diagnosis Line: Atrial fibrillation with rapid ventricular Diagnosis Line: response Diagnosis Line: Rightward axis Diagnosis Line: Septal infarct (cited on or before 05-SEP-2016) Diagnosis Line: Abnormal ECG Diagnosis Line: When compared with ECG of 13-AUG-2016 10:22, Diagnosis Line: Atrial fibrillation has replaced Sinus rhythm Diagnosis Line: Nonspecific T wave abnormality, worse in Inferior Diagnosis Line: leads Diagnosis Line: Nonspecific T wave abnormality now evident in Diagnosis Line: Lateral leads Diagnosis Line: Confirmed by VICTOR M MARMOLEJO MD ([id number]) on 09/07/2016 Diagnosis Line: 10:29:24 AM INTERPRETING MD: FRANCIE WATTS
--- NOTE | ~2016-09-05 | CR71 ---
[facility] A Service of [facility] & [facility] RADIOLOGY TEXT RESULTS PATIENT: ROBERTH DAVIS LOCATION: [address] : [birth year] UNIT #: [id number] AGE: [address]: Naomie Balderas MD SEX: F ORDER DR: [id number] [facility] [address] [place], [place] [address] [id number] I MR#: [id number] Acc #: [id number] NAME: ROBERTH DAVIS. : 1955 SEX: F STUDY DATE/TIME: 09/06/2016 7:12 UNIT: [facility] ROOM: [facility] STUDY DESCRIPTION: CR Chest Single View Attending Physician: Naomie Balderas M.D. Ordering Physician: Naomie Balderas M.D. Primary Care Physician: Frederick Salinas M.D. MEDICAL IMAGING REPORT This report is preliminary unless electronic signature is present EXAM Portable chest radiograph HISTORY Shortness of breath and respiratory distress beginning yesterday. FINDINGS An AP view is obtained and compared to the previous day's film of 09/05. Heart size in the patient appears enlarged but stable. There is a moderate-sized left pleural effusion that has increased. Lungs show evidence of bilateral interstitial infiltrates presumably interstitial edema. No other focal consolidation is seen. CONCLUSION Increasing left-sided pleural fluid. Continued interstitial infiltrates in the lungs likely pulmonary edema. Dictated by... Geronimo Cortez M.D. THIS IS AN ELECTRONICALLY VERIFIED REPORT Geronimo Cortez M.D. at 09/07/2016 7:25 AM Cammy TD: 09/06/2016 08:02 JOB #: [id number] MEDICAL IMAGING REPORT Page 1 of 1 COPY
--- NOTE | ~2016-09-05 | EKG ---
PATIENT: ROBERTH DAVIS UNIT #: [id number] Ventricular Rate: 115 BPM Atrial Rate: 326 BPM QRS Duration: 74 ms Q-T Interval: 302 ms QTC Calculation(Bezet): 417 ms Calculated R [place]: 102 degrees Calculated T [place]: 96 degrees Diagnosis Line: Atrial fibrillation with rapid ventricular Diagnosis Line: response Diagnosis Line: Rightward axis Diagnosis Line: Low voltage QRS Diagnosis Line: Septal infarct (cited on or before 11-SEP-2016) Diagnosis Line: Abnormal ECG Diagnosis Line: When compared with ECG of 09-SEP-2016 06:33, Diagnosis Line: No significant change was found Diagnosis Line: Confirmed by STEVEN MORTENSEN MD ([id number]) on 09/11/2016 Diagnosis Line: 9:59:25 PM INTERPRETING MD: BALBINA WATTS
--- NOTE | ~2016-09-05 | HP ---
Unit #: [id number] #: [id number] Patient: MIKKI CARRENO [id number] [address] [place], [place] [address] [id number] I MR#: [id number] NAME: MIKKI CARRENO ROOM: 547 Age: 61 Sex: F Admission Date: 09/05/2016 : 1955 Attending Physician: Naomie Balderas M.D. Primary Care Physician: Frederick Salinas M.D. HISTORY AND PHYSICAL ADMISSION DIAGNOSES 1. Acute exacerbation of chronic obstructive pulmonary disease. 2. New onset of atrial fibrillation with rapid ventricular response. HISTORY OF PRESENT ILLNESS Ms. Mikki Carreno is a 61-year-old female with the past medical history of hypertension, diastolic congestive heart failure, COPD, depression, who was apparently seen by Dr. Rodriguez as an outpatient today and was advised to come to emergency room secondary to increasing shortness of air, dyspnea and acute exacerbation of COPD. Patient was seen in the emergency room and along with the acute hypoxemic respiratory failure and acute exacerbation of COPD, patient was found with the pleural effusion and new onset of afib with RVR. She was started on Cardizem drip and currently getting admitted. Patient otherwise denies any chest pain, denies any headache, dizziness, fever, chills, nausea, vomiting, diarrhea or abdominal pain. REVIEW OF SYSTEMS A 12-point review of systems on this patient is basically negative except as above. PAST MEDICAL HISTORY As above in HPI. PAST SURGICAL HISTORY Past surgical history is significant for knee surgery and oral surgery. HOME MEDICATIONS I do not have in front of me but this will be clarified with the pharmacy and patient will be restarted accordingly. ALLERGIES Penicillin and tetracycline. SOCIAL HISTORY She is an active smoker and has been an active smoker all her life, denies any alcohol or IV drugs, uses marijuana occasionally. FAMILY HISTORY Otherwise unremarkable. PHYSICAL EXAMINATION GENERAL: On the physical exam she is a 61-year-old female not in acute Unit #: [id number] #: [id number] Patient: MIKKI CARRENO distress. VITAL SIGNS: BP 92/79. Heart rate 136. Respirations 21. Temperature 97.7. Sating 94% on 4 L. HEENT: Head is atraumatic. Pupils equal, round and reactive to light and accommodation. Extraocular muscles intact. Oropharynx clear. NECK: Supple. No mass. No JVD. No bruits. CHEST: Chest is diminished bilaterally with some expiratory wheezing. CARDIOVASCULAR EXAM: S1, S2, no murmurs. ABDOMEN: Abdomen is soft, nontender and nondistended. EXTREMITIES: Lower extremities without any significant cyanosis, clubbing or edema. NEUROLOGICAL: Patient grossly intact, without any focal deficits. DIAGNOSTIC STUDIES IMAGING: Chest x-ray shows small left pleural effusion with mild cardiomegaly. LABORATORY: Chemistry significant for creatinine of 1.6, sodium of 133, chloride 96. Coagulation panel: PT 11.6 and INR 1.1. Set of cardiac enzymes negative. Hematology unremarkable with a white count of 10, hemoglobin and hematocrit 14.5 and 44.4. ASSESSMENT AND PLAN 1. Acute exacerbation of chronic obstructive pulmonary disease: Continue bronchodilators, IV steroids per Dr. Rodriguez. 2. New onset of atrial fibrillation with rapid ventricular rate, was on Cardizem drip: Dr. Champagne to be followed, the consult has been placed. Will check the 2D echo. Will check TSH. 3. Continues tobacco use: Counseled on importance of quitting. 4. History of hypertension, now hypotensive: Continue per Cardiology. 5. GI and DVT prophylaxis: Will put on PPI and Lovenox. Dictated by Hank Swift M.D. OC/shea TD: 09/05/2016 21:12 JOB #: [id number] HISTORY AND PHYSICAL Page 1 of 1 X Hank Swift MD X HISTORY AND PHYSICAL
--- NOTE | ~2016-09-05 | CR72 ---
[facility] A Service of [facility] RADIOLOGY TEXT RESULTS PATIENT: ROBERTH DAVIS LOCATION: [place] [address] : [birth year] UNIT #: [id number] AGE: [address]: Naomie Balderas MD SEX: F ORDER DR: [id number] [facility] [address] [place], [place] [address] [id number] I MR#: [id number] Acc #: [id number] NAME: ROBERTH ADVIS. : 1955 SEX: F STUDY DATE/TIME: 09/07/2016 04:35 [facility] STUDY DESCRIPTION: CR Chest Single View Portable Attending Physician: Naomie Balderas M.D. Ordering Physician: Dulce Maria Rodriguez M.D. Primary Care Physician: Frederick Salinas M.D. MEDICAL IMAGING REPORT This report is preliminary unless electronic signature is present EXAM Portable chest 09/07/2016 at 04:35 INDICATION COPD. Shortness of air. Respiratory distress. FINDINGS AP portable chest compared with 09/06/2016. Cardiomegaly stable. Right IJ line in the SVC. There is emphysema. Infiltrate or atelectasis in both bases with small bilateral pleural effusions are again seen. These do not appear significantly changed. No pneumothorax. Dictated by... Johann Rayn Jr., M.D. THIS IS AN ELECTRONICALLY VERIFIED REPORT Johann Ryan Jr., M.D. at 09/07/2016 10:14 PM MARLI/nica TD: 09/07/2016 07:21 JOB #: [id number] MEDICAL IMAGING REPORT Page 1 of 1 COPY
--- NOTE | ~2016-09-05 | EKG ---
PATIENT: ROBERTH DAVIS UNIT #: [id number] Ventricular Rate: 135 BPM Atrial Rate: 87 BPM QRS Duration: 78 ms Q-T Interval: 296 ms QTC Calculation(Bezet): 444 ms Calculated R [place]: 116 degrees Calculated T [place]: 81 degrees Diagnosis Line: Atrial fibrillation with rapid ventricular Diagnosis Line: response Diagnosis Line: Right axis deviation Diagnosis Line: Low voltage QRS Diagnosis Line: Poor R wave progression questionable lead position Diagnosis Line: or body habitus Diagnosis Line: Abnormal ECG Diagnosis Line: When compared with ECG of 05-SEP-2016 15:54, Diagnosis Line: (unconfirmed) Diagnosis Line: Nonspecific T wave abnormality no longer evident Diagnosis Line: in Inferior leads Diagnosis Line: Nonspecific T wave abnormality no longer evident Diagnosis Line: in Lateral leads Diagnosis Line: Confirmed by LILIAN CUEVA MD ([id number]) on Diagnosis Line: 09/08/2016 7:38:05 AM INTERPRETING ELOY LEE
--- NOTE | ~2016-09-05 | CO ---
Unit #: [id number] #: [id number] Patient: ROBERTH CARRENO [id number] [address] [address] [id number] I MR#: [id number] NAME: ROBERTH CARRENO ROOM: [facility] Age: 61 Sex: F Admission Date: 09/05/2016 : 1955 Attending Physician: Naomie Balderas M.D. Primary Care Physician: Frederick Salinas M.D. Consultation Date: 09/06/2016 CONSULTATION REPORT REASON FOR THE CONSULT Acute kidney injury. HISTORY OF PRESENT ILLNESS Ms. Carreno is a very pleasant 61-year-old white female who was admitted to the hospital after seeing Dr. Rodriguez as an outpatient and complaining of shortness of breath. In the emergency room, she was found to have a COPD exacerbation, as well as new onset A fib. Patient's A fib did not improve with a Cardizem drip, and she had issues with hypotension, prompting her transfer to the ICU overnight. Patient did receive fluid boluses and now is on a Caesar-Synephrine drip. The Cardizem was stopped, and she has been switched over to amiodarone. We were asked to see for an abnormal creatinine this morning of 1.5. Previously, kidney numbers have been stable. She does have a history of hypertension and hyperlipidemia. She is on an JACKELYN inhibitor and a diuretic at home. She has occasional NSAID use at home but none recently. No history of kidney stones. No urinary complaints. PAST MEDICAL HISTORY Her past medical history is significant for COPD, diastolic congestive heart failure, hypertension, depression, hyperlipidemia, atrial fibrillation. PAST SURGICAL HISTORY She has had knee surgery and oral surgery, unknown type. HOME MEDS 1. Symbicort inhaler. 2. Ventolin inhaler. 3. Combivent inhaler. 4. Remeron 30 mg at bedtime. 5. Seroquel 300 mg at bedtime. 6. Flexeril 10 mg at bedtime. 7. Nicotine patch. 8. Lipitor 40 mg a day. 9. Albuterol inhaler. 10. Lasix 40 mg a day. 11. Breo inhaler. 12. Zestril 40 mg a day. 13. Norvasc 10 mg a day. ALLERGIES Penicillin and tetracycline. Unit #: [id number] #: [id number] Patient: ROBERTH CARRENO FAMILY HISTORY Family history is negative for any kidney disease. She denies any family history of dialysis or transplant. SOCIAL HISTORY The patient continues to smoke at least a pack of cigarettes per day. She does use marijuana. Denies IV drug use. No alcohol abuse. She has supportive family in the room today. REVIEW OF SYSTEMS A complete 12-point review of systems was completed with the above findings. In addition, she denies any headache or dizziness this morning. No nosebleeds, sore throat or earache. No chest pain. No hemoptysis. Some chronic cough. Shortness of breath has improved. No abdominal pain, nausea or vomiting. No dysuria or hematuria. She does have chronic swelling in her right leg greater than left. No rashes. No itching. No flank pain. No fevers. No chills. No night sweats or hot flashes. No intolerance to heat or cold. No bleeding issues. No recent weight changes. Unless otherwise indicated, the review of systems was negative. PHYSICAL EXAMINATION VITAL SIGNS: The patient is afebrile. Pulse 130, respiratory rate 21, blood pressure 104/72. Blood pressure got as low as 76/49. GENERAL: This is a pleasant 61-year-old white female, somewhat anxious, sitting up in bed but in no acute distress. HEENT: Head is atraumatic, normocephalic. Eyes show pink conjunctiva with no scleral icterus. No nasal drainage or nosebleeds. Oropharynx shows poor dentition, moist with no thrush. NECK: Neck shows no rigidity. CARDIOVASCULAR: Heart is tachycardic and irregular with distant S1, S2. No rub appreciated. RESPIRATORY: Lungs have diminished breath sounds bilaterally with no wheezing this morning. Breathing is nonlabored at rest. ABDOMEN: Abdomen is soft, nontender, nondistended. Bowel sounds are present. EXTREMITIES: Patient has no left lower extremity edema or cyanosis. Right lower extremity is edematous with 1+ edema, also no cyanosis. SKIN: Skin is dry with no rashes. MUSCULOSKELETAL: No joint effusions noted. No CVA tenderness to palpation. NEUROLOGIC: Cranial nerves are grossly intact with no gross motor deficits. LYMPHATIC EXAM: There is no neck cervical lymphadenopathy. PSYCHIATRIC EXAM: Mood and affect appear normal. Again, she is a little anxious. DIAGNOSTIC STUDIES LABS: CK level was 32. Troponin negative. Chemistry this morning - Sodium 133, potassium 4.6, chloride 100, bicarb 24, glucose 166, BUN 16, creatinine up to 1.5. BNP 400. CBC was unremarkable. Lactic acid was normal. Yesterday's creatinine was 1.6. Admission CBC was unremarkable. No previous urine studies. Prior creatinine on discharge August 13 was 1. IMAGING: Chest x-ray this morning showed some left pleural fluid and some pulmonary edema. Previous imaging was reviewed. Did not see any kidney imaging here at the hospital. She did have a lower extremity Doppler on August 12 of the right Unit #: [id number] #: [id number] Patient: ROBERTH CARRENO leg with no DVT found. ASSESSMENT AND PLAN 1. Acute kidney injury. This looks to be prerenal in nature from hypotensive issues with A fib and rapid ventricular response. She would have altered renal compensation on her home JACKELYN inhibitor use. Her JACKELYN inhibitor will be stopped. She is on Caesar support now for her hypotension. I will be getting urine studies for workup. If kidney function does not improve to previous baseline soon, we will also order imaging. Again, supportive care is in place. 2. Hypotension. This is improved off of Cardizem drip, and she is now on Caesar-Synephrine for blood pressure support. 3. Congestive heart failure, which is diastolic in nature. We will continue her Lasix based on her x-ray findings. 4. Tobacco abuse. Tobacco cessation counselling was given during my visit. 5. COPD. 6. A fib, now on amiodarone drip. 7. History of hypertension, off meds. 8. Patient has chronic edema in the right leg, more so than the left, with negative Dopplers last admission. This may be related to amlodipine use at home. I would like thank Dr. Swift for this consult and the opportunity to participate in the evaluation and care of Ms. Carreno. Dictated by... Reno Devlin Jr., M.D. ELIJAH/kasia TD: 09/06/2016 10:20 JOB #: [id number] CONSULTATION REPORT Page 1 of 1 X Reno Devlin MD X CONSULTATION REPORT
--- NOTE | ~2016-09-05 | EKG ---
PATIENT: ROBERTH DAVIS UNIT #: [id number] Ventricular Rate: 110 BPM Atrial Rate: 91 BPM QRS Duration: 74 ms Q-T Interval: 314 ms QTC Calculation(Bezet): 424 ms Calculated R [place]: 104 degrees Calculated T [place]: 97 degrees Diagnosis Line: Atrial fibrillation with rapid ventricular Diagnosis Line: response Diagnosis Line: Rightward axis Diagnosis Line: Low voltage QRS Diagnosis Line: Poor R wave progression questionable lead position Diagnosis Line: or body habitus Diagnosis Line: Abnormal ECG Diagnosis Line: When compared with ECG of 08-SEP-2016 05:42, Diagnosis Line: No significant change was found Diagnosis Line: Confirmed by LILIAN CUEVA MD ([id number]) on Diagnosis Line: 09/09/2016 1:52:54 PM INTERPRETING MD: ROSA
[~2016-09-05 15:23] MED LIST changes: +ALBUTEROL/ATROVENT NEB; +FLEXERIL10 MG PO; +LIPITOR40 MG PO; +NICOTINE TRANSD14 MG TOP; +REMERON30 MG PO; +SEROQUEL300 MG PO; +SYMBICORT INH
[2016-09-05 16:20] LABS: BASOPHIL% 0.5 % (0-2.5); EOSINOPHIL# 0.1 X10e3 (0-0.7); EOSINOPHIL% 0.8 % (0.0-7.0); HEMATOCRIT 44.4 % (35.0-45.0); HEMOGLOBIN 14.5 gm/dL (12.0-16.0); LYMPHOCYTE# 1.8 X10e3 (1.0-3.5); LYMPHOCYTE% 17.9 % (17.0-45.0); MEAN CORPUSCULAR HEMOGLOBIN 31.1 PG (28-34); MEAN CORPUSCULAR HGB CONC 32.8 g/dL (30-36); MEAN PLATELET VOLUME 9.8 FL (6.5-11.5); MONOCYTE# 0.9 X10e3 (0-1.0); MONOCYTE% 8.6 % (3.0-12.0); NEUTROPHIL# 7.3 X10e3 (1.5-7.1); NEUTROPHIL% 72.2 % (40-75); PLATELET COUNT 209 X10e3 (140-420); RED BLOOD COUNT 4.67 X10e (3.90-5.30); RED CELL DISTRIBUTION WIDTH 13.6 % (11.0-15.5); WHITE BLOOD COUNT 10.1 X10e3 (4.0-10.5)
[2016-09-05] MEDS ORDERED: PATIENT'S PHARMACY (16:20)
[2016-09-05 16:21] LABS: DIFF IND NO
[2016-09-05 16:29] LABS: POC - CKMB <1.0 ng/mL (0.0-7.9); POC - TROPONIN <0.05 ng/mL (<=0.05)
[2016-09-05 16:33] LABS: INR 1.1; PARTIAL THROMBOPLASTIN TIME 27.7 SECONDS (23.5-31.3); PROTHROMBIN TIME (PATIENT) 11.6 SECONDS (9.6-11.5)
[2016-09-05 16:44] LABS: ALBUMIN SERUM 3.7 g/dL (3.5-5.0); BILIRUBIN, DIRECT 0.2 mg/dL (0.0-0.2); BILIRUBIN,INDIRECT 0.8 mg/dL (0.0-0.9); BUN/CREATININE RATIO 9.37; CREATININE SERUM 1.6 mg/dL (0.6-1.4); GLOM FILT RATE Estimated 34.2 mL/min (>60); PROTEIN TOTAL SERUM 6.4 g/dL (6.0-8.3)
[2016-09-06 05:59] LABS: HEMATOCRIT 41.7 % (35.0-45.0); HEMOGLOBIN 13.8 gm/dL (12.0-16.0); MEAN CELL VOLUME 94.8 FL (83-96); MEAN CORPUSCULAR HEMOGLOBIN 31.4 PG (28-34); MEAN CORPUSCULAR HGB CONC 33.2 g/dL (30-36); MEAN PLATELET VOLUME 9.6 FL (6.5-11.5); RED BLOOD COUNT 4.4 X10e (3.90-5.30); RED CELL DISTRIBUTION WIDTH 13.3 % (11.0-15.5); WHITE BLOOD COUNT 6.8 X10e3 (4.0-10.5)
[2016-09-06 07:30] LABS: BUN/CREATININE RATIO 10.66; CALCIUM SERUM 8.4 mg/dL (8.4-10.2); CREATININE SERUM 1.5 mg/dL (0.6-1.4); POTASSIUM 4.6 mmol/L (3.5-5.1)
[2016-09-06 08:05] LABS: CK TOTAL 32 IU/L (26-140)
[2016-09-06 11:33] LABS: URINE APPEARANCE CLEAR; URINE BILIRUBIN NEG (NEG); URINE BLOOD NEG (NEG); URINE COLOR YELLOW; URINE GLUCOSE 100 MG/DL (NEG); URINE KETONE NEG (NEG); URINE LEUKOCYTE ESTERASE 2+ (NEG); URINE NITRATE NEG (NEG); URINE PROTEIN NEG (NEG); URINE SPECIFIC GRAVITY 1.009 (1.003-1.035); URINE UROBILINOGEN 0.2 MG/DL (NEG)
[2016-09-06 11:36] LABS: CULTURE INDICATED? YES; URBCS1 AUWI 0-2 /[HPF] (0-2); URINE BACTERIA AUWI NEG (NEGATIVE); URINE SQUAMOUS EPITHELIAL CELL OCC /[HPF]
[2016-09-06 13:14] LABS: CK TOTAL 29 IU/L (26-140)
[2016-09-06 17:22] LABS: CREATININE,RANDOM URINE 59 mg/dL; SODIUM URINE RANDOM 54 mmol/L
[2016-09-07 03:36] LABS: DIFF IND NO; HEMOGLOBIN 13.1 gm/dL (12.0-16.0); LYMPHOCYTE# 0.5 X10e3 (1.0-3.5); LYMPHOCYTE% 5.3 % (17.0-45.0); MEAN CELL VOLUME 94.9 FL (83-96); MEAN CORPUSCULAR HEMOGLOBIN 31.1 PG (28-34); MEAN CORPUSCULAR HGB CONC 32.8 g/dL (30-36); MEAN PLATELET VOLUME 9.7 FL (6.5-11.5); MONOCYTE# 0.3 X10e3 (0-1.0); MONOCYTE% 3.1 % (3.0-12.0); NEUTROPHIL% 91.6 % (40-75); PLATELET COUNT 168 X10e3 (140-420); RED BLOOD COUNT 4.22 X10e (3.90-5.30); RED CELL DISTRIBUTION WIDTH 13.5 % (11.0-15.5); WHITE BLOOD COUNT 8.7 X10e3 (4.0-10.5)
[2016-09-07 04:05] LABS: ALBUMIN SERUM 3.4 g/dL (3.5-5.0); BILIRUBIN,TOTAL 0.5 mg/dL (0.2-2.0); BUN/CREATININE RATIO 13.33; CALCIUM SERUM 8.4 mg/dL (8.4-10.2); CREATININE SERUM 1.5 mg/dL (0.6-1.4); MAGNESIUM 2.1 mg/dL (1.6-3.0); POTASSIUM 4.4 mmol/L (3.5-5.1); PROTEIN TOTAL SERUM 5.5 g/dL (6.0-8.3)
[2016-09-07 05:11] LABS: ARTERIAL BLD GAS O2 SATURATION 96.6 % (90.0-100.0); ARTERIAL BLOOD GAS CARBOXY HB 0.8 %sat (0.0-9.0); ARTERIAL BLOOD GAS HCO3 26.1 mmol/L; ARTERIAL BLOOD GAS MET HB 0.7 %sat (0.0-2.0); ARTERIAL BLOOD GAS PO2 99.6 mmHg (80.0-100); ARTERIAL BLOOD GAS pH 7.402 (7.350-7.450)
[2016-09-07 05:14] LABS: ARTERIAL BLOOD GAS ALLEN TEST NORMAL; ARTERIAL BLOOD GAS ART SITE LEFT RADIAL; ARTERIAL BLOOD GAS DELIVERY NASAL CANNULA; ARTERIAL DRAW? YES
[2016-09-07 10:30] LABS: TMH HEPATITIS B SURFACE AG -JH Negative (Negative); TMH HEPATITIS C AB - JH Positive (Negative)
[2016-09-08 05:22] LABS: BASOPHIL# 0.1 X10e3 (0-0.3); BASOPHIL% 0.6 % (0-2.5); HEMATOCRIT 40.9 % (35.0-45.0); HEMOGLOBIN 13.4 gm/dL (12.0-16.0); LYMPHOCYTE# 0.6 X10e3 (1.0-3.5); LYMPHOCYTE% 6.1 % (17.0-45.0); MEAN CELL VOLUME 95.1 FL (83-96); MEAN CORPUSCULAR HEMOGLOBIN 31.2 PG (28-34); MEAN CORPUSCULAR HGB CONC 32.8 g/dL (30-36); MEAN PLATELET VOLUME 9.4 FL (6.5-11.5); MONOCYTE# 0.5 X10e3 (0-1.0); MONOCYTE% 5.2 % (3.0-12.0); NEUTROPHIL# 7.9 X10e3 (1.5-7.1); NEUTROPHIL% 88.1 % (40-75); PLATELET COUNT 182 X10e3 (140-420); RED CELL DISTRIBUTION WIDTH 13.7 % (11.0-15.5)
[2016-09-08 05:23] LABS: DIFF IND NO
[2016-09-08 05:42] LABS: BUN/CREATININE RATIO 18.23; CALCIUM SERUM 8.2 mg/dL (8.4-10.2); CREATININE SERUM 1.7 mg/dL (0.6-1.4); GLOM FILT RATE Estimated 31.8 mL/min (>60); POTASSIUM 4.5 mmol/L (3.5-5.1)
[2016-09-09 06:29] LABS: HEMOGLOBIN 14.6 gm/dL (12.0-16.0); MEAN CELL VOLUME 94.7 FL (83-96); MEAN CORPUSCULAR HEMOGLOBIN 30.8 PG (28-34); MEAN CORPUSCULAR HGB CONC 32.5 g/dL (30-36); MEAN PLATELET VOLUME 9.6 FL (6.5-11.5); RED BLOOD COUNT 4.75 X10e (3.90-5.30); RED CELL DISTRIBUTION WIDTH 13.6 % (11.0-15.5); WHITE BLOOD COUNT 8.6 X10e3 (4.0-10.5)
[2016-09-09 07:08] LABS: BUN/CREATININE RATIO 18.12; CALCIUM SERUM 8.7 mg/dL (8.4-10.2); CREATININE SERUM 1.6 mg/dL (0.6-1.4); GLOM FILT RATE Estimated 34.2 mL/min (>60); MAGNESIUM 2.5 mg/dL (1.6-3.0)
[2016-09-09 07:13] LABS: POTASSIUM 5.5 mmol/L (3.5-5.1)
[2016-09-09 16:43] LABS: CALCIUM SERUM 8.2 mg/dL (8.4-10.2); CREATININE SERUM 1.3 mg/dL (0.6-1.4); GLOM FILT RATE Estimated 43.9 mL/min (>60); POTASSIUM 4.7 mmol/L (3.5-5.1)
[2016-09-10 06:48] LABS: BUN/CREATININE RATIO 24.54; CALCIUM SERUM 8.4 mg/dL (8.4-10.2); CREATININE SERUM 1.1 mg/dL (0.6-1.4); GLOM FILT RATE Estimated 53.8 mL/min (>60); POTASSIUM 4.8 mmol/L (3.5-5.1)
[2016-09-11 06:02] LABS: HEMATOCRIT 44.9 % (35.0-45.0); HEMOGLOBIN 14.6 gm/dL (12.0-16.0); MEAN CELL VOLUME 95.4 FL (83-96); MEAN CORPUSCULAR HEMOGLOBIN 30.9 PG (28-34); MEAN CORPUSCULAR HGB CONC 32.4 g/dL (30-36); MEAN PLATELET VOLUME 9.8 FL (6.5-11.5); RED BLOOD COUNT 4.71 X10e (3.90-5.30); RED CELL DISTRIBUTION WIDTH 13.9 % (11.0-15.5); WHITE BLOOD COUNT 11.1 X10e3 (4.0-10.5)
[2016-09-11 07:14] LABS: BUN/CREATININE RATIO 21.66; CALCIUM SERUM 8.7 mg/dL (8.4-10.2); CREATININE SERUM 1.2 mg/dL (0.6-1.4); GLOM FILT RATE Estimated 48.4 mL/min (>60); MAGNESIUM 2.2 mg/dL (1.6-3.0)
[2016-09-11] MEDS ORDERED: ACETAMINOPHEN PO (12:51)
[2016-09-11] MEDS ORDERED: DIGOX0.25 MG PO (12:52)
[2016-09-11] MEDS ORDERED: BETAPACE PO (12:52)
[2016-09-11] MEDS ORDERED: PROAMATINE10 MG PO (12:53)
[2016-09-11] MEDS ORDERED: PRADAXA150 MG PO (12:54)
[2016-09-11] MEDS ORDERED: PREDNISONE PO (12:58)
== END 2016-09-11 16:56 | disposition home or self-care (01) | DRG 190 ==
LOC: CED 15:23 → C5B 18:10 → CEDOF 18:10 → CED 18:33 → CEDOF 18:33 → C5B 20:32 → CEDOF 20:32 → CICCU2 09-06 02:27 → C5B 09-06 02:27
PROVIDERS: Emergency Medicine; Hospitalist; Internal Medicine; Internal Medicine Cardiovascular Disease; Internal Medicine Nephrology; Physician Assistant Medical
PROC: 02HV33Z Insertion of Infusion Device into Superior Vena Cava, Percutaneous Approach (ICD-10-PCS; principal; 2016-09-06)
PROC: B548ZZA Ultrasonography of Superior Vena Cava, Guidance (ICD-10-PCS; 2016-09-06)
DX: J44.0 Chronic obstructive pulmonary disease with (acute) lower respiratory infection (principal); J96.01 Acute respiratory failure with hypoxia; I11.0 Hypertensive heart disease with heart failure; I50.32 Chronic diastolic (congestive) heart failure; N17.9 Acute kidney failure, unspecified; I48.91 Unspecified atrial fibrillation; Z88.0 Allergy status to penicillin; F17.210 Nicotine dependence, cigarettes, uncomplicated; J44.1 Chronic obstructive pulmonary disease with (acute) exacerbation; J20.9 Acute bronchitis, unspecified; E78.5 Hyperlipidemia, unspecified; R60.9 Edema, unspecified; I95.2 Hypotension due to drugs; B19.20 Unspecified viral hepatitis C without hepatic coma; Z71.6 Tobacco abuse counseling
CPT/HCPCS: 36600; 71010; 80048; 80053; 80076; 81003; 82550; 82553; 82570; 82803; 83605; 83735; 83880; 84300; 84443; 84484; 85025; 85027; 85610; 85730; 86803; 87040; 87086; 87340; 87522; 87806; 93005; 94640; 94760; 96361; 96374; 96375; 97116; 97163; 97167; 99291; J0282; J1160; J1650; J1940; J2370; J2920; J2930; J3490

== ENCOUNTER 2016-12-05 23:11 | Inpatient (IN) | payer OTHER ==
[~2016-12-05] VITALS: Ht 162.6 cm; Wt 60.2 kg
--- NOTE | ~2016-12-05 | CO ---
Unit #: [id number] #: [id number] Patient: ROBERTH CARRENO [id number] [address] [place], [place] [address] [id number] I MR#: [id number] NAME: ROBERTH CARRENO ROOM: 578 Age: 61 Sex: F Admission Date: 12/06/2016 : 1955 Attending Physician: Naomie Balderas M.D. Primary Care Physician: Frederick Salinas M.D. CONSULTATION REPORT REASON FOR CONSULTATION Hyponatremia. Thank you for asking me to see this patient in consultation. HISTORY OF PRESENT ILLNESS Ms. Carreno is a 61-year-old female, who we actually saw back in August for acute renal failure, although renal function improved, who presented to the hospital here thirty-six hours ago with increased shortness of breath, atrial fibrillation which is old, but had rapid ventricular response as well as increased volume. The patient was known to have a sodium of 129 yesterday, because of this we were asked to see the patient and in reviewing her records she has had sodium, over the last few months, in the low 130s range. Since admission she underwent an echo of her heart which showed normal ejection fraction but she had severe mitral stenosis, moderate aortic stenosis as well as aortic regurgitation and a small pericardial effusion. Yesterday, she was started on IV Lasix as well as p.o. fluid restriction. Since our initial consult, ordered a TSH which was normal at 0.62. The patient's urine osmolality is 236. She states that she is still short of breath but not as severe. She is not having any chest pain but she is having some upper back pain, she has had occasional nausea, no vomiting. She denies any headaches or dizziness or cough. She does state that she is having increased swelling but she thinks it is improving some. PAST MEDICAL HISTORY 1. History of atrial fibrillation. 2. History of chronic obstructive pulmonary disease. 3. History of hypertension. 4. History of depression. 5. History of acute renal failure in 09/06 resolved. 6. History of hyperlipidemia. 7. Status post knee surgery. 8. History of hepatitis C. SOCIAL HISTORY She is a positive smoker, history of intermittent marijuana, no IV drugs, no alcohol. ALLERGIES Include, penicillin and tetracycline. FAMILY HISTORY Negative for kidney disease or sodium problems. Unit #: [id number] #: [id number] Patient: ROBERTH CARRENO HOME MEDICATIONS Included: 1. Lasix 20 mg a day 2. Remeron 30 mg at night 3. Seroquel 300 mg at night 4. Flexeril p.r.n. 5. Lanoxin 0.25 mg a day 6. Betapace 40 mg b.i.d. 7. ProAmatine three times a day 5 mg 8. Eliquis 2.5 mg b.i.d. Here she was started on Solu-Medrol, IV Lasix, and Protonix. REVIEW OF SYSTEMS As mentioned in the history of present illness. She denies any urinary symptoms, starting, stopping, and burning, denies any recent skin rashes, no recent seizures or strokes. She denies any history of abdominal pain, any diarrhea. Rest of her review of systems is as mentioned in the history of present illness. PHYSICAL EXAMINATION GENERAL: She is alert. Temperature is 97.8, pulse 50-129, blood pressure 102-154/59-95. She has had recorded 1025 input and output only 900, although not all recorded. DIAGNOSTIC STUDIES LABORATORY: Today the sodium is up to 133, potassium 3.9, chloride 97, bicarb 28, BUN and creatinine 14 and 0.8, glucose of 213. Hemoglobin is 13.5, white count 7,900, platelet count 66,000. Urine sodium was 77. BMP is 410. CPK is 42. Calcium is 8.5, and magnesium is 1.9. IMAGING: Chest x-ray shows some cardiomegaly, small effusions. CARDIOVASCULAR: Echo as mentioned in the history of present illness. ASSESSMENT/PLAN 1. Hyponatremia. The patient appears to have probably a hypervolemic, hyponatremia with the cause of her hypervolemia most likely related to cardiac valvular dysfunction and fluid overload. I certainly agree with p.o. fluid restriction and once her sodium gets near normal probably maybe change that to two liters per day and probably keep her on that if possible. Also, agree with IV diuretics. She had normal TSH so doubt any thyroid problems. She has had some Solu-Medrol so unable to do a cortisol level, also reviewed her medicines and I don't see them as a cause. She, theoretically, could have a SIADH, from her underlying lung disease. Her urine osmolality is not maximally dilute but certainly is not severely elevated either. For again just IV diuretics, fluid restriction, will check in the morning and we will continue to follow. 2. Fluid overload secondary to vascular heart disease with diuresis. 3. History of atrial fibrillation with rapid ventricular response. 4. History of hepatitis C. 5. Chronic obstructive pulmonary disease. Dictated by... Unit #: [id number] #: [id number] Patient: ROBERTH CARRENO M.D. WAD/guicho TD: 12/08/2016 07:30 JOB #: [id number] CONSULTATION REPORT Page 1 of 1 X Patrick Flores MD X CONSULTATION REPORT
--- NOTE | ~2016-12-05 | CO ---
Unit #: [id number] #: [id number] Patient: ROBERTH DAVIS [id number] [address] [place], [place] [address] [id number] I MR#: [id number] NAME: ROBERTH DAVIS. ROOM: 578 Age: 61 Sex: F Admission Date: 12/06/2016 : 1955 Attending Physician: Naomie Balderas M.D. Primary Care Physician: Frederick Salinas M.D. Consultation Date: 12/08/2016 CONSULTATION REPORT CHIEF COMPLAINT Shortness of breath. REASON FOR CONSULTATION Right lower extremity ulcer. HISTORY OF PRESENT ILLNESS This is a 61-year-old female with multiple medical problems, including COPD, who was admitted for atrial fibrillation with RVR. We were asked for evaluation of right anterior ang ulcer. She states that this ulcer has been present for about 3 to 4 weeks. It spontaneously occurred, in the setting of significant right lower extremity swelling. She denies any previous history of leg ulceration, nonhealing wounds, or infections. She does have occasional cramping when she walks, but she denies that it is consistent or severe. She currently believes that her breathing is much better than when she first came into the hospital. PAST MEDICAL HISTORY Hypertension, COPD, depression, diastolic heart failure, and atrial fibrillation. PAST SURGICAL HISTORY Includes knee surgery and oral surgery. HOME MEDICATIONS Include albuterol, Lasix, Ellipta, Remeron, Seroquel, Flexeril, nicotine patch, Tylenol, Lanoxin, Betapace, midodrine, and Eliquis. ALLERGIES Include penicillin and tetracycline. SOCIAL HISTORY Continues to smoke, though states she is trying to quit. Denies any alcohol or illicit drug use. FAMILY HISTORY Father had hemophilia, but denies any other known aneurysms or bleeding disorders, or clotting disorders within the family. REVIEW OF SYSTEMS As stated above, in addition; Unit #: [id number] #: [id number] Patient: ROBERTH DAVIS CONSTITUTIONAL: Denies any fevers or chills. HEENT: Denies any ear pain or tinnitus. RESPIRATIONS: Positive shortness of breath. Positive for cough. CARDIOVASCULAR: Denies any chest pain or palpitations. GI: Denies any nausea, vomiting, or diarrhea. : Denies any hematuria. HEME: Denies any easy bruising. ENDOCRINE: Denies any excessive thirst or hunger. MUSCULOSKELETAL: Denies any excessive back pain or neck pain. INTEGUMENTARY: As stated above in HPI. PHYSICAL EXAMINATION VITAL SIGNS: Temperature is 98.2, heart rate 72, blood pressure is 157/66, respirations 17, and 100% on 2 L. CONSTITUTIONAL: Well-appearing; appears older than stated age; eyes, no scleral icterus. NECK: No JVD. No carotid bruit. LYMPHATICS: No lymphadenopathy in the neck or groins. CARDIOVASCULAR: Irregularly irregular. Pulse exam; 2+ femoral pulses. DP and PT; multiphasic signals, bilaterally. RESPIRATIONS: Currently on nebulizer treatment. GI: Soft. Nontender. Nondistended. SKIN: At right lower extremity anterior aspect, there is a 2 x 2 cm circular ulceration, shallow, with some scabbing at the 12 to 2 o'clock position. There is no erythema. There is no drainage. No foul odor. It is minimally tender. PSYCH: Normal mood and affect. DIAGNOSTIC DATA LABORATORY STUDIES: WBC 12.9, hematocrit 43.1, and platelets 204. Sodium 134, potassium 3.5, chloride 94, CO2 is 32, BUN 14, creatinine 0.9, and glucose 195. Right EFRA; DP 0.71, PT 0.71, toe pressure is 67, toe index 0.44. Left dorsalis pedis EFRA; 0.63, PT 0.76, toe pressure is 81, toe index 0.53. IMAGING STUDIES: Right lower extremity venous duplex is negative for DVT. ASSESSMENT AND PLAN A 61-year-old female with a slow healing right anterior ang ulcer, approximately 2 x 2 cm in size, does not appear infected, in the setting of peripheral vascular disease. I reviewed interpreted ABIs, she does have moderate arterial insufficiency of the right and left leg. She does have good signals to her feet, however. I believe that this wound should heal, without the benefit of peripheral intervention, if she does get some good wound care, such as debridement and dressing changes. I have placed an order for her to get dry dressing for now, as well as an order for referral to [facility] on the 6th floor. I will also ask the wound care nurse to come by and take a look as well. She may need some bedside debridement before discharge depending on how the wound is healing. If she does not heal well over the next several weeks or the wound gets worse, or gets infected, she then will need a right lower extremity angiogram to evaluate and possibly treat her peripheral vascular disease. She can follow up with me in the office if desired in 2 to 4 weeks. Unit #: [id number] #: [id number] Patient: ROBERTH DAVIS She did mention that ride would be difficult for her because she does not have transportation and relies upon her friends. Her current friend does, who provide her transportation is also about to lose her car as well. I do not believe, however, that she needs to have inpatient angiogram at this time. We can give her the benefit in terms of healing based on the location and the appearance of this ulcer, and it should heal on its own. Dictated by... Amanda Acevedo/julia TD: 12/10/2016 03:15 JOB #: [id number] CONSULTATION REPORT Page 1 of 1 X X CONSULTATION REPORT
--- NOTE | ~2016-12-05 | US136 ---
[facility] A Service of [facility] RADIOLOGY TEXT RESULTS PATIENT: ROBERTH DAVIS LOCATION: [facility] [address] : [birth year] UNIT #: [id number] AGE: [address]: Naomie Balderas MD SEX: F ORDER DR: [id number] [facility] [address] [facility]. [place], [place] [address] [id number] I MR#: [id number] Acc #: [id number] NAME: ROBERTH DAVIS. : 1955 SEX: F STUDY DATE/TIME: 12/06/2016 10:48 UNIT: [facility] ROOM: [facility] STUDY DESCRIPTION: US U/L Ext Art Study Ltd Bilat Attending Physician: Naomie Balderas M.D. Ordering Physician: Yue Tavera M.D. Primary Care Physician: Frederick Salinas M.D. MEDICAL IMAGING REPORT This report is preliminary unless electronic signature is present EXAM Pdycr-is-oxwdqzlp indices. DATE OF EXAMINATION 12/06/2016 HISTORY Leg pain. FINDINGS The right brachial pressure was not measured. The left brachial pressure is 153. The right dorsalis pedis pressure is 109, posterior tibial 109, and toe 67, for an ankle-brachial index of 0.71. The left dorsalis pedis pressure is 96, posterior tibial 116, and toe 81 for an ynaan-fj-mhhazoyo index of 0.76. Doppler waveform analysis indicates a biphasic signal in the posterior tibial and dorsalis pedis arteries bilaterally. Post-volume recording tracings demonstrate dampening of the amplitude of the signal at the ankle and digital level bilaterally. IMPRESSION Moderate ischemia of both legs. Uuxrr-nn-fqkbdews index is 0.71 on the right, and 0.76 on the left. [facility] A Service of [facility] RADIOLOGY TEXT RESULTS PATIENT: ROBERTH DAVIS LOCATION: [facility] [address] : [birth year] UNIT #: [id number] AGE: [address]: Naomie Balderas MD SEX: F ORDER DR: Dictated by... Reno Hanna M.D. THIS IS AN ELECTRONICALLY VERIFIED REPORT Reno Hanna M.D. at 12/07/2016 7:30 AM CASSIDY/ingrid TD: 12/06/2016 23:33 JOB #: [id number] MEDICAL IMAGING REPORT Page 1 of 1 COPY
--- NOTE | ~2016-12-05 | DS ---
Unit #: [id number] #: [id number] Patient: MIKKI CARRENO [id number] [address] [address] [id number] I MR#: [id number] NAME: MIKKI CARRENO. ROOM: 578 Age: 61 Sex: F Admission Date: 12/06/2016 : 1955 Discharge Date: 12/12/2016 Attending Physician: Naomie Balderas M.D. Primary Care Physician: Frederick Salinas M.D. DISCHARGE SUMMARY CONSULTATIONS IN HOSPITALIZATION 1. Dr. Flores and Dr. Devlin from renal services 2. Dr. Champagne from cardiology services 3. Dr. Ruffin from vascular surgery DISCHARGE DIAGNOSES 1. Atrial fibrillation with rapid ventricular rate, now rate is under control and regular rhythm. 2. Eccid-sz-hizvicf diastolic congestive heart failure with left ventricular ejection fraction of 50% to 55%. 3. Valvular heart disease with moderate aortic stenosis and severe mitral stenosis. The patient is not a candidate for open valve at this time, she needs to quit smoking. 4. Pulmonary hypertension. 5. Hypertension. 6. Chronic obstructive pulmonary disease. 7. Right lower extremity wound. 8. History of depression. 9. Tobacco abuse. 10. Chronic respiratory failure on home O2. 11. Hyperlipidemia. 12. Chronic back pain. DISCHARGE MEDICATIONS 1. Ventolin inhaler two puffs q.6 p.r.n. 2. Prednisone tapering dose 3. ProAmatine 5 mg t.i.d. 4. Acetaminophen 650 q.6 p.r.n. 5. Eliquis 5 mg p.o. twice a day 6. Remeron 30 mg q.h.s. 7. Seroquel 300 mg q.h.s. 8. Nicotine patch topically daily 9. Digoxin 0.25 mg daily 10. Betapace 18 mg twice a day 11. Breo one puff inhaler daily 12. Lasix 40 mg twice a day 13. Potassium 20 mEq daily 14. Flexeril 10 mg q.h.s. 15. Continue nebulizer treatment at home q.i.d. DIAGNOSTIC STUDIES LABORATORY: Lab workup on discharge, glucose is 128, BMP shows sodium 134, potassium 4.7, chloride 88, BUN 22, creatinine 1.0, potassium 8.6, blood cultures are negative. CBC shows WBC 9.2, hemoglobin 16.1, Unit #: [id number] #: [id number] Patient: MIKKI CARRENO hematocrit 48.9, platelet count of 191. IMAGING: Significant imaging studies done during hospitalization. Arterial Doppler also bilateral lower extremity shows moderate ischemia of both legs. Ankle to brachial index is 0.71 on right and 0.76 on left. Venous Doppler study of lower extremities showed no DVTs. Chest x-ray shows bilateral pleural effusions, emphysema, and interstitial prominence which probably reflects a mild degree of edema. No pneumothorax is seen. HOSPITAL COURSE Ms. Mikki Carreno is a 61-year-old female, who was admitted to my colleague, Dr. Swift, with shortness of breath and dyspnea, and found to have acute exacerbation of diastolic congestive heart failure and atrial fibrillation with rapid ventricular rate. The patient was admitted to telemetry unit at [facility]. The patient was started on fluid restriction. The patient started on IV diuretics. The patient did have 2+ to 3+ lower leg edema. Venous Doppler study was done which was negative for DVT. The patient also received Cardizem drip during the beginning of the stay which was discontinued and sotalol was started. The patient is doing much better at this time. The patient also received high dose of digoxin which was brought back to her normal state. Multiple medications have been adjusted. Please refer to the medication reconciliation. The patient is not a good candidate for open valve at this time because of her severe comorbidities. She needs to quit smoking and she needs PFT as outpatient. This is district branch manager recommendation. The patient will follow up with cardiology as outpatient. The patient does have right lower extremity wound. The patient was seen by Dr. Ruffin from vascular and has been advised to continue dressings at this time. Arterial Doppler study was done that shows moderate ischemia. The patient has been advised to follow up with Dr. Ruffin in the wound care clinic at [facility] on the 6th floor in two-to-four weeks. This also does not seem to be infected at this time. The patient was treated with steroids for chronic obstructive pulmonary disease and is being discharged home on prednisone tapering dose. The patient was advised to be placed in rehab facility but she refused. She would rather go home. DISCHARGE EXAMINATION VITAL SIGNS: Blood pressure is 120/83, respiratory rate is 16, pulse is 72, temperature is 99. GENERAL: The patient is awake, alert, oriented x3. CHEST: Decreased air entry bilaterally in the bases. CVS: S1 and S2 positive. Murmur is heard. ABDOMEN: Soft. DISCHARGE INSTRUCTIONS The patient is being discharged home on above medication. FOLLOWUP 1. Follow up with primary care provider in one week. 2. Follow up with Dr. Tavera, January 22 at 12:30 p.m. Unit #: [id number] #: [id number] Patient: MIKKI CARRENO 3. Follow up wound care center at [facility], 6th floor, in two-to-four weeks. PLAN 1. PFT to be done as outpatient. 2. CBC, BMP to be done in one week. 3. Tobacco cessation counseling done at length. Dictated by... Naomie Balderas M.D. Home TD: 12/13/2016 08:30 JOB #: [id number] DISCHARGE SUMMARY Page 1 of 1 X Naomie Balderas MD X DISCHARGE SUMMARY
--- NOTE | ~2016-12-05 | HP ---
Unit #: [id number] #: [id number] Patient: ROBERTH CARRENO [id number] [address] [address] [id number] I MR#: [id number] NAME: ROBERTH CARRENO ROOM: 578 Age: 61 Sex: F Admission Date: 12/06/2016 : 1955 Attending Physician: Naomie Balderas M.D. Primary Care Physician: Frederick Salinas M.D. HISTORY AND PHYSICAL ADMISSION DIAGNOSES 1. Shortness of air and dyspnea. 2. Acute exacerbation of diastolic heart failure. 3. AFib with rapid ventricular response. 4. Hypertension. 5. Chronic obstructive pulmonary disease. 6. Depression. 7. Tobacco use. HISTORY OF PRESENT ILLNESS Ms. Carreno is a 61-year-old female well known to our service secondary to prior admission, comes to emergency with acute onset of shortness of air and dyspnea. Patient was found with the AFib with RVR started on the Cardizem drip and she is status post evaluation per cardiology and switched to sotalol. She unfortunately does have a history of COPD and continues to smoke. Denies any current chest pain. Denies any headaches, dizziness, fever, chills, nausea, vomiting or productive cough. Denies any syncope or presyncope. REVIEW OF SYSTEMS Twelve point review of systems was essentially basically negative, except as above. PAST MEDICAL HISTORY Significant for hypertension, COPD, depression, diastolic heart failure and atrial fibrillation. PAST SURGICAL HISTORY Significant for a knee surgery and some oral surgery. HOME MEDICATIONS Albuterol, Lasix, Breo Ellipta, Remeron, Seroquel, Flexeril, nicotine patch, Tylenol, Lanoxin, Betapace, midodrine and Eliquis. ALLERGIES Penicillin and tetracycline. SOCIAL HISTORY Continues to smoke. Denies any alcohol or illicit drugs. FAMILY HISTORY Unremarkable. PHYSICAL EXAMINATION Unit #: [id number] #: [id number] Patient: ROBERTH CARRENO GENERAL APPEARANCE: Patient is a 62-year-old, female in no acute distress. VITAL SIGNS: BP 135/75, heart rate 51, respirations 16, temperature 97.8. HEENT: Head is atraumatic. Pupils equal, round, and reactive to light. Extraocular muscles intact. Oropharynx clear. NECK: Supple. No mass. No JVD. No bruits. CHEST: Diminished bilaterally. CARDIOVASCULAR: S1 and S2. No murmurs. ABDOMEN: Obese, soft, nontender, and nondistended. LOWER EXTREMITIES: Without any significant cyanosis, clubbing or edema. NEUROLOGIC: Patient alert and oriented without any focal deficits. DIAGNOSTIC STUDIES IMAGING STUDIES: Chest x-ray unremarkable. It shows some stable small pleural effusions and emphysema. Lower extremity ultrasound negative. LABORATORY STUDIES: A set of cardiac enzymes negative. Chemistry is significant for sodium of 127, blood glucose 127, otherwise unremarkable. PT/INR 13.6 and 1.3, white count 10.8, H and H 14.5 and 44.9, platelets 239. ASSESSMENT AND PLAN 1. Shortness of air and dyspnea secondary to acute exacerbation of diastolic heart failure, status post evaluation per cardiology, Dr. Tavera. Continue IV Lasix. 2. AFib with RVR, off of Cardizem drip, continue sotalol per cardiology. Continue anticoagulation with Eliquis. Continue Lanoxin. 3. Hyponatremia. Will start on p.o. fluid restriction. Ask nephrology to follow. Dr. Michelle had seen the patient in the past. 4. History of COPD, stable. Chest x-ray - no signs of acute respiratory distress. Will decrease Solu-Medrol and continue bronchodilators. 5. Hypertension stable. 6. Tobacco use. Continue to education counselor on ways to quit. 7. History of depression. Continue home meds. 8. GI and DVT prophylaxis. Continue Eliquis and will start on some Protonix. Dictated by Amanda Coyle/naldo TD: 12/07/2016 05:36 JOB #: [id number] HISTORY AND PHYSICAL Page 1 of 1 X Hank Swift MD HISTORY AND PHYSICAL
--- NOTE | ~2016-12-05 | US85 ---
[facility] A Service of [facility] & [facility] RADIOLOGY TEXT RESULTS PATIENT: ROBERTH DAVIS LOCATION: [facility] 578-01 : 54 UNIT #: [id number] AGE: [address]: Naomie Balderas MD SEX: F ORDER DR: [id number] [facility] [address] [place], [place] [address] [id number] I MR#: [id number] Acc #: [id number] NAME: ROBERTH DAVIS. : 1955 SEX: F STUDY DATE/TIME: 12/06/2016 7:49 UNIT: [facility] ROOM: [facility] STUDY DESCRIPTION: US LE Veins Unilat or Ltd Stdy Attending Physician: Naomie Balderas M.D. Ordering Physician: Naomie Balderas M.D. Primary Care Physician: Frederick Salinas M.D. MEDICAL IMAGING REPORT This report is preliminary unless electronic signature is present EXAM Right lower extremity venous duplex, 12/06/2016 HISTORY Right lower extremity edema and pain for 1 year, worsening in the last 2 weeks. Evaluate for deep vein thrombosis. TECHNIQUE Venous ultrasound examination of the right lower extremity was performed using grayscale, spectral Doppler and color flow Doppler imaging. FINDINGS The examination is negative. There is no evidence of right lower extremity deep venous thrombus from the groin to the lower calf. Visualized greater saphenous vein is also patent. IMPRESSION Negative examination. No evidence of right lower extremity deep venous thrombosis. Dictated by... Ramone Alfred M.D. THIS IS AN ELECTRONICALLY VERIFIED REPORT Ramone Alfred M.D. at 12/07/2016 7:27 AM NICKI/corinne TD: 12/06/2016 09:48 JOB #: [id number] MEDICAL IMAGING REPORT Page 1 of 1 COPY
--- NOTE | ~2016-12-05 | CR72 ---
[facility] A Service of [facility] & [facility] RADIOLOGY TEXT RESULTS PATIENT: ROBERTH DAVIS LOCATION: [facility] 578- : 53 UNIT #: [id number] AGE: [address]: Naomie Balderas MD SEX: F ORDER DR: [id number] [facility] [address] [place], [place] [address] [id number] I MR#: [id number] Acc #: [id number] NAME: ROBERTH DAVIS : 1955 SEX: F STUDY DATE/TIME: 12/05/2016 23:43 UNIT: [facility] ROOM: [facility] STUDY DESCRIPTION: CR Chest Single View Portable Attending Physician: Naomie Balderas M.D. Ordering Physician: Boom Wang D.O. Primary Care Physician: Frederick Salinas M.D. MEDICAL IMAGING REPORT This report is preliminary unless electronic signature is present EXAM Portable chest 12/05 23:43 INDICATION Shortness of air, cough started today. History of smoking. FINDINGS AP portable chest is compared with 09/07/2016. Cardiomegaly is stable. Small bilateral pleural effusions are not significantly changed. There is emphysema. There is interstitial prominence which probably reflects a mild degree of edema. Pneumonia should be excluded clinically, particularly at the right base. No pneumothorax is seen. Dictated by... Johann Ryan Jr., M.D. THIS IS AN ELECTRONICALLY VERIFIED REPORT Johann Ryan Jr., M.D. at 12/07/2016 4:21 AM MARLI/nica TD: 12/06/2016 06:45 JOB #: [id number] MEDICAL IMAGING REPORT Page 1 of 1 COPY
--- NOTE | ~2016-12-05 | EKG ---
PATIENT: ROBERTH DAVIS UNIT #: [id number] Ventricular Rate: 112 BPM Atrial Rate: 110 BPM QRS Duration: 78 ms Q-T Interval: 308 ms QTC Calculation(Bezet): 420 ms Calculated R [place]: 118 degrees Calculated T [place]: 64 degrees Diagnosis Line: Atrial fibrillation with rapid ventricular Diagnosis Line: response Diagnosis Line: Right axis deviation Diagnosis Line: Low voltage QRS Diagnosis Line: Septal infarct (cited on or before 07-DEC-2016) Diagnosis Line: Abnormal ECG Diagnosis Line: When compared with ECG of 06-DEC-2016 05:58, Diagnosis Line: No significant change was found Diagnosis Line: Confirmed by STEVEN MORTENSEN MD ([id number]) on 12/07/2016 Diagnosis Line: 6:53:13 PM INTERPRETING MD: BALBINA WATTS
--- NOTE | ~2016-12-05 | EKG ---
PATIENT: ROBERTH DAVIS UNIT #: [id number] Ventricular Rate: 141 BPM Atrial Rate: 144 BPM QRS Duration: 74 ms Q-T Interval: 262 ms QTC Calculation(Bezet): 401 ms Calculated R [place]: 100 degrees Calculated T [place]: -120 degrees Diagnosis Line: Atrial fibrillation with rapid ventricular Diagnosis Line: response Diagnosis Line: Rightward axis Diagnosis Line: Anteroseptal infarct (cited on or before Diagnosis Line: 11-SEP-2016) Diagnosis Line: ST and T wave abnormality, consider inferolateral Diagnosis Line: ischemia Diagnosis Line: Abnormal ECG Diagnosis Line: When compared with ECG of 11-SEP-2016 07:15, Diagnosis Line: Questionable change in initial forces of Anterior Diagnosis Line: leads Diagnosis Line: ST no longer elevated in Inferior leads Diagnosis Line: T wave inversion now evident in Inferior leads Diagnosis Line: Confirmed by LILIAN CUEVA MD ([id number]) on Diagnosis Line: 12/06/2016 10:36:43 PM INTERPRETING MD: ROSA
--- NOTE | ~2016-12-05 | EKG ---
PATIENT: ROBERTH DAVIS UNIT #: [id number] Ventricular Rate: 80 BPM Atrial Rate: 29 BPM QRS Duration: 74 ms Q-T Interval: 350 ms QTC Calculation(Bezet): 403 ms Calculated R [place]: 98 degrees Calculated T [place]: 166 degrees Diagnosis Line: Atrial fibrillation Diagnosis Line: Rightward axis Diagnosis Line: Low voltage QRS Diagnosis Line: Nonspecific ST and T wave abnormality Diagnosis Line: Abnormal ECG Diagnosis Line: When compared with ECG of 05-DEC-2016 23:23, Diagnosis Line: (unconfirmed) Diagnosis Line: rate slower Diagnosis Line: Confirmed by LILIAN CUEVA MD ([id number]) on Diagnosis Line: 12/06/2016 10:39:23 PM INTERPRETING MD: ROSA
--- NOTE | ~2016-12-05 | CO ---
Unit #: [id number] #: [id number] Patient: ROBERTH DAVIS [id number] [address] [place], [place] [address] [id number] I MR#: [id number] NAME: ROBERTH DAVIS. ROOM: 578 Age: 61 Sex: F Admission Date: 12/06/2016 : 1955 Attending Physician: Naomie Balderas M.D. Primary Care Physician: Frederick Salinas M.D. CONSULTATION REPORT JOB NOTE: CC: PRIMARY CARE PHYSICIAN HISTORY OF PRESENT ILLNESS This is a very pleasant 61-year-old female, who appears much older than her stated age. She follows with Dr. Tavera in the office. The patient has a past medical history of hypertension; COPD; newly diagnosed atrial fibrillation, on chronic anticoagulation with Eliquis; hyperlipidemia; and nicotine abuse. The patient states she was at home in her typical state of health until about 2 to 3 days ago, where she complains of increasing shortness of breath as well as dyspnea on exertion. She states a few days ago, she does try to deal with it, but yesterday it worsened to the point, where she just could not catch her breath. She denies any complaint of palpitations or chest pain. She does have some chronic back pain, and reports some pain across her shoulder blades, which is worsened with deep breaths. She does report she has not been eating well and her appetite has been poor. She does also report increasing fatigue and weakness as of late. It is also notable that the patient has lost approximately 50 pounds over the last year, unintentional weight loss. It is notable she underwent a 2D echocardiogram in July of 2016, which showed grade 1 diastolic dysfunction, left ventricular ejection fraction of 55% to 60%, severe mitral calcification, mild thickening of the leaflets. Doppler studies suggest no significant stenosis and mild MR. She also had ischemic evaluation in July of 2016 with a dobutamine-stress Cardiolite, which was negative for any stress-induced ischemia. On arrival to the emergency room, the patient was noted to be in atrial fibrillation with rapid ventricular response, rate of 141 beats per minute. She was given 10 mg IV bolus of Cardizem as well as started on Cardizem drip. The patient was also noted to be in some mild heart failure. BNP was noted to be 410. Chest x-ray showed small bilateral pleural effusions with interstitial prominence, suggestive of mild edema. She also did receive in the emergency room, one dose of IV Lasix and has been continued on IV Lasix b.i.d. It is also notable the patient did have an elevated D-dimer of 725. Currently, she has a lower extremity venous Dopplers, which are pending. Initial cardiac enzymes have been negative. At present, the patient is resting in bed. She appears comfortable. She denies any complaints of chest pain or palpitations. Her rate is better controlled at this time. She does have some right leg swelling, which is approximately 2 to 3+ as well as a wound on her lower right leg, which appears to be a venous stasis ulcer. Unit #: [id number] #: [id number] Patient: ROBERTH DAVIS PAST MEDICAL HISTORY 1. Hypertension. 2. COPD, on chronic home O2 at 2 L. 3. Hyperlipidemia. 4. Nicotine abuse. However, the patient was a two pofu-dpf-duk smoker is down to four cigarettes daily. 5. Atrial fibrillation, on anticoagulation with Eliquis. However, the patient has only been taking once a day. 6. Chronic back pain. 7. Depression. PAST SURGICAL HISTORY 1. Knee surgery. 2. Oral surgery. ALLERGIES Penicillin and tetracycline. HOME MEDICATIONS 1. Albuterol 1 inhalation q.4 hours p.r.n. 2. Lasix 40 mg p.o. daily. 3. Breo Ellipta 1 inhalation daily. 4. Remeron 30 mg p.o. at bedtime. 5. Seroquel 300 mg p.o. at bedtime. 6. Flexeril 10 mg p.o. at bedtime. 7. Nicotine patch 1 topical daily. 8. Ventolin 2 puffs inhalation every 6 hours. 9. Mini-Neb, albuterol and Atrovent p.r.n. every 4 hours. 10. Acetaminophen 650 p.o. q.6 hours p.r.n. pain. 11. Lanoxin 0.25 mg p.o. daily. 12. Betapace 40 mg p.o. b.i.d. 13. ProAmatine 5 mg p.o. t.i.d. 14. Eliquis 2.5 mg p.o. daily. FAMILY HISTORY Negative for coronary artery disease. SOCIAL HISTORY The patient is a tobacco user, was smoking two packs a day, but states she has recently cut down to about four cigarettes daily. She denies alcohol or illicit drug use. She lives with her nephew. REVIEW OF SYSTEMS CONSTITUTIONAL: Denies fever or chills. Does report weight loss of approximately 50 pounds over the last several years. HEENT: No headache, hearing, or vision changes. Denies dysphagia. CARDIOVASCULAR: Denies chest pain, palpitations, otherwise stated as above in the HPI. RESPIRATORY: Denies wheezes or productive cough. Denies hemoptysis. GASTROINTESTINAL: Denies abdominal pain, nausea, or vomiting. Denies melena or bright red bleeding per rectum. EXTREMITIES: Positive for right lower extremity edema and right lower extremity wound appears to be venous stasis ulcer. PHYSICAL EXAMINATION GENERAL: This is a very pleasant 61-year-old female, who appears much older than her stated age. She is in no acute distress. Unit #: [id number] #: [id number] Patient: ROBERTH DAVIS HEENT: Head is atraumatic and normocephalic. Pupils are equal and round. Mucous membranes are moist. NECK: Trachea is midline. No lymphadenopathy. No thyromegaly. Carotid upstrokes are normal. HEART: S1 and S2, irregularly irregular. No murmurs, gallops, or rubs. LUNGS: Clear to auscultation. Diminished in the bases. No rhonchi or wheezing is noted. ABDOMEN: Soft, nontender, and nondistended. Bowel sounds present. EXTREMITIES: Trace lower extremity edema on the left leg. 2+ to 3+ right lower extremity edema with what appears to be a venous stasis ulcer on the anterior portion of the right lower leg. VITAL SIGNS: Temperature 97.8, respiratory rate 16 to 18, pulse 60s to 70sm and blood pressure 136/77. BMI is 25. DIAGNOSTIC STUDIES LABORATORY STUDIES: Glucose 129, potassium 4.8, chloride 95, CO2 of 23, BUN 10, creatinine 0.9, glucose 127. Hemoglobin 14.5, hematocrit 44.9, WBCs 10.8, and platelet count 228. Troponins have been negative. BNP was 410. Digoxin level was 1.4. D-dimer 725. Blood cultures are currently pending. IMAGING STUDIES: Her chest x-ray shows stable cardiomegaly, small bilateral pleural effusions and interstitial prominence, suggestive of mild edema. CARDIOVASCULAR STUDIES: EKG shows atrial fibrillation with rapid ventricular response, rate of 141 beats per minute, rightward axis, ST-T wave abnormality, QTc interval of 401 milliseconds. IMPRESSION 1. Acute diastolic congestive heart failure, last ejection fraction noted to be 55% to 60%. 2. Atrial fibrillation with rapid ventricular response, on chronic anticoagulation with Eliquis. 3. Weight loss. 4. Chronic obstructive pulmonary disease, on home oxygen therapy 2 L. 5. Hypertension. 6. Hyperlipidemia. 7. History of acute kidney injury. PLAN 1. We have been asked to see the patient secondary to atrial fibrillation with RVR and acute diastolic CHF. She will be started on fluid restrictions as well as daily weights and strict I's and O's. The patient is currently receiving IV diuretics, these will be continued. She does have right lower leg edema, which is about 2 to 3+ as well as what appears to be a venous stasis ulcer on the right lower leg. The patient currently has a venous Doppler, which is pending to rule out DVT as she had an elevated D-dimer. We will also ask the wound nurse to see regarding her lower extremity wound. It is notable that the patient does report to me that she has only been taking her Eliquis once daily as she was unclear on what she was supposed to do. 2. We will, at this time, discontinue her Cardizem drip and increase her sotalol to 80 mg p.o. b.i.d. with parameters to hold for heart rate below 70. Will also ask nursing staff to Doppler her arterial pulse in bilateral lower extremities. The patient may benefit from EFRA down the road to see if she has any venous insufficiency. We will also increase her Eliquis to 5 mg p.o. b.i.d., and have the registered nurse hh case manager check cost for Unit #: [id number] #: [id number] Patient: ROBERTH DAVIS the patient. We will also check ECG tomorrow a.m. to assess for any QTc prolongation. She was encouraged to quit smoking as well. The patient may also need further workup from her primary care team regarding her continued weight loss. Dictated by... Alberto Dodge/julai TD: 12/07/2016 16:40 JOB #: [id number] CONSULTATION REPORT Page 1 of 1 X Chantelle Arias APRN X CONSULTATION REPORT
[~2016-12-05 23:11] MED LIST changes: +ACETAMINOPHEN PO; +BETAPACE PO; +DIGOX0.25 MG PO; +PATIENT'S PHARMACY; +PRADAXA150 MG PO; +PREDNISONE PO; +PROAMATINE10 MG PO
[2016-12-05 23:43] LABS: ARTERIAL BLD GAS O2 SATURATION 90.9 % (90.0-100.0); ARTERIAL BLOOD GAS MET HB 0.4 %sat (0.0-2.0); ARTERIAL BLOOD GAS PCO2 39.9 mmHg (35.0-45.0); ARTERIAL BLOOD GAS pH 7.369 (7.350-7.450)
[2016-12-05 23:44] LABS: ARTERIAL BLOOD GAS ALLEN TEST NORMAL; ARTERIAL BLOOD GAS ART SITE RIGHT RADIAL; ARTERIAL BLOOD GAS DELIVERY NASAL CANNULA; ARTERIAL DRAW? YES
[2016-12-05 23:55] LABS: POC - CKMB 1.4 ng/mL (0.0-7.9); POC - TROPONIN <0.05 ng/mL (<=0.05)
[2016-12-06] MEDS ORDERED: ELIQUIS2.5 MG PO (00:19)
[2016-12-06 00:33] LABS: BASOPHIL# 0.1 X10e3 (0-0.3); BASOPHIL% 0.9 % (0-2.5); EOSINOPHIL# 0.1 X10e3 (0-0.7); EOSINOPHIL% 1.1 % (0.0-7.0); HEMATOCRIT 44.9 % (35.0-45.0); HEMOGLOBIN 14.5 gm/dL (12.0-16.0); LYMPHOCYTE# 2.8 X10e3 (1.0-3.5); LYMPHOCYTE% 25.6 % (17.0-45.0); MEAN CELL VOLUME 93.9 FL (83-96); MEAN CORPUSCULAR HEMOGLOBIN 30.4 PG (28-34); MEAN CORPUSCULAR HGB CONC 32.4 g/dL (30-36); MEAN PLATELET VOLUME 11.8 FL (6.5-11.5); MONOCYTE# 1.1 X10e3 (0-1.0); MONOCYTE% 10.5 % (3.0-12.0); NEUTROPHIL# 6.7 X10e3 (1.5-7.1); NEUTROPHIL% 61.9 % (40-75); RED BLOOD COUNT 4.78 X10e (3.90-5.30); WHITE BLOOD COUNT 10.8 X10e3 (4.0-10.5)
[2016-12-06 00:44] LABS: INR 1.3; PARTIAL THROMBOPLASTIN TIME 27.6 SECONDS (23.5-31.3); PROTHROMBIN TIME (PATIENT) 13.6 SECONDS (10.0-11.7)
[2016-12-06 00:47] LABS: DIFF IND NO; PLATELET COUNT 228 X10e3 (140-420)
[2016-12-06 00:51] LABS: ALBUMIN SERUM 3.7 g/dL (3.5-5.0); BILIRUBIN, DIRECT 0.4 mg/dL (0.0-0.2); BILIRUBIN,INDIRECT 0.9 mg/dL (0.0-0.9); BILIRUBIN,TOTAL 1.3 mg/dL (0.2-2.0); BUN/CREATININE RATIO 11.11; CALCIUM SERUM 8.6 mg/dL (8.4-10.2); CREATININE SERUM 0.9 mg/dL (0.6-1.4); DIGOXIN (LANOXIN) 1.4 ng/ml (1.0-2.0); GLOM FILT RATE Estimated 68.6 mL/min (>60); POTASSIUM 4.8 mmol/L (3.5-5.1); PROTEIN TOTAL SERUM 5.8 g/dL (6.0-8.3)
[2016-12-06 01:27] LABS: POC - CKMB <1.0 ng/mL (0.0-7.9); POC - TROPONIN <0.05 ng/mL (<=0.05)
[2016-12-06 06:53] LABS: CK TOTAL 39 IU/L (26-140)
[2016-12-06 15:28] LABS: CK TOTAL 42 IU/L (26-140)
[2016-12-07 05:26] LABS: HEMOGLOBIN 13.5 gm/dL (12.0-16.0); MEAN CELL VOLUME 92.4 FL (83-96); MEAN CORPUSCULAR HEMOGLOBIN 31.2 PG (28-34); MEAN CORPUSCULAR HGB CONC 33.8 g/dL (30-36); MEAN PLATELET VOLUME 10.6 FL (6.5-11.5); RED BLOOD COUNT 4.33 X10e (3.90-5.30); RED CELL DISTRIBUTION WIDTH 15.9 % (11.0-15.5); WHITE BLOOD COUNT 7.9 X10e3 (4.0-10.5)
[2016-12-07 07:04] LABS: BUN/CREATININE RATIO 17.5; CALCIUM SERUM 8.5 mg/dL (8.4-10.2); CREATININE SERUM 0.8 mg/dL (0.6-1.4); GLOM FILT RATE Estimated 79.1 mL/min (>60); MAGNESIUM 1.9 mg/dL (1.6-3.0); POTASSIUM 3.9 mmol/L (3.5-5.1)
[2016-12-07 08:37] LABS: OSMOLALITY,URINE 236 mOsmo/kg (250-900)
[2016-12-07 09:04] LABS: SODIUM URINE RANDOM 77 mmol/L
[2016-12-08 05:56] LABS: BASOPHIL% 0.1 % (0-2.5); HEMATOCRIT 43.1 % (35.0-45.0); HEMOGLOBIN 13.9 gm/dL (12.0-16.0); LYMPHOCYTE# 0.7 X10e3 (1.0-3.5); LYMPHOCYTE% 5.7 % (17.0-45.0); MEAN CELL VOLUME 92.4 FL (83-96); MEAN CORPUSCULAR HEMOGLOBIN 29.9 PG (28-34); MEAN CORPUSCULAR HGB CONC 32.3 g/dL (30-36); MEAN PLATELET VOLUME 10.4 FL (6.5-11.5); MONOCYTE# 0.8 X10e3 (0-1.0); MONOCYTE% 6.1 % (3.0-12.0); NEUTROPHIL# 11.4 X10e3 (1.5-7.1); NEUTROPHIL% 88.1 % (40-75); PLATELET COUNT 204 X10e3 (140-420); RED BLOOD COUNT 4.66 X10e (3.90-5.30); RED CELL DISTRIBUTION WIDTH 16.3 % (11.0-15.5)
[2016-12-08 06:01] LABS: DIFF IND NO; WHITE BLOOD COUNT 12.9 X10e3 (4.0-10.5)
[2016-12-08 06:05] LABS: BUN/CREATININE RATIO 15.55; CALCIUM SERUM 8.3 mg/dL (8.4-10.2); CREATININE SERUM 0.9 mg/dL (0.6-1.4); GLOM FILT RATE Estimated 68.6 mL/min (>60); PHOSPHOROUS 3.1 mg/dL (2.5-4.6); POTASSIUM 3.5 mmol/L (3.5-5.1)
[2016-12-09 08:23] LABS: BUN/CREATININE RATIO 12.72; CALCIUM SERUM 8.5 mg/dL (8.4-10.2); CREATININE SERUM 1.1 mg/dL (0.6-1.4); GLOM FILT RATE Estimated 53.8 mL/min (>60); MAGNESIUM 2.1 mg/dL (1.6-3.0); POTASSIUM 3.4 mmol/L (3.5-5.1)
[2016-12-09 08:46] LABS: HEMOGLOBIN 15.6 gm/dL (12.0-16.0); MEAN CELL VOLUME 92.2 FL (83-96); MEAN CORPUSCULAR HEMOGLOBIN 31.3 PG (28-34); MEAN CORPUSCULAR HGB CONC 33.9 g/dL (30-36); MEAN PLATELET VOLUME 10.6 FL (6.5-11.5); RED BLOOD COUNT 4.99 X10e (3.90-5.30); WHITE BLOOD COUNT 10.4 X10e3 (4.0-10.5)
[2016-12-10 07:44] LABS: BUN/CREATININE RATIO 16.25; CREATININE SERUM 0.8 mg/dL (0.6-1.4); GLOM FILT RATE Estimated 79.1 mL/min (>60); MAGNESIUM 2.1 mg/dL (1.6-3.0); POTASSIUM 3.8 mmol/L (3.5-5.1)
[2016-12-11 06:18] LABS: HEMATOCRIT 48.9 % (35.0-45.0); HEMOGLOBIN 16.1 gm/dL (12.0-16.0); MEAN CELL VOLUME 93.1 FL (83-96); MEAN CORPUSCULAR HEMOGLOBIN 30.5 PG (28-34); MEAN CORPUSCULAR HGB CONC 32.8 g/dL (30-36); MEAN PLATELET VOLUME 10.5 FL (6.5-11.5); RED BLOOD COUNT 5.26 X10e (3.90-5.30); RED CELL DISTRIBUTION WIDTH 15.6 % (11.0-15.5); WHITE BLOOD COUNT 9.2 X10e3 (4.0-10.5)
[2016-12-11 07:08] LABS: CALCIUM SERUM 8.6 mg/dL (8.4-10.2); GLOM FILT RATE Estimated 60.4 mL/min (>60); POTASSIUM 4.2 mmol/L (3.5-5.1)
[2016-12-12 06:49] LABS: CALCIUM SERUM 8.6 mg/dL (8.4-10.2); GLOM FILT RATE Estimated 60.4 mL/min (>60); POTASSIUM 4.7 mmol/L (3.5-5.1)
[2016-12-12] MEDS ORDERED: [UNRECOGNIZED DRUG - OTHER] DOB (18:13)
[2016-12-12] MEDS ORDERED: DELTASONE20 MG PO (18:30)
== END 2016-12-12 19:04 | disposition home or self-care (01) | DRG 292 ==
LOC: CED 23:11 → C5C 12-06 01:30 → CEDOF 12-06 01:30 → CED 12-06 01:56 → C5C 12-06 03:02 → CEDOF 12-06 03:02 → C5C 12-12 19:04
PROVIDERS: Emergency Medicine; Hospitalist; Internal Medicine Cardiovascular Disease; Internal Medicine Nephrology; Nurse Practitioner; Physician Assistant Medical
PROC: B24BYZZ Ultrasonography of Heart with Aorta using Other Contrast (ICD-10-PCS; 2016-12-06)
PROC: 3E0234Z Introduction of Serum, Toxoid and Vaccine into Muscle, Percutaneous Approach (ICD-10-PCS; principal; 2016-12-07)
DX: I11.0 Hypertensive heart disease with heart failure (principal); E87.1 Hypo-osmolality and hyponatremia; J96.10 Chronic respiratory failure, unspecified whether with hypoxia or hypercapnia; I27.2 Other secondary pulmonary hypertension; L97.819 Non-pressure chronic ulcer of other part of right lower leg with unspecified severity; Z99.81 Dependence on supplemental oxygen; Z79.01 Long term (current) use of anticoagulants; I48.91 Unspecified atrial fibrillation; Z23 Encounter for immunization; J44.9 Chronic obstructive pulmonary disease, unspecified; F32.9 Major depressive disorder, single episode, unspecified; F17.210 Nicotine dependence, cigarettes, uncomplicated; Z88.0 Allergy status to penicillin; E78.5 Hyperlipidemia, unspecified; R63.4 Abnormal weight loss; B19.20 Unspecified viral hepatitis C without hepatic coma; I50.33 Acute on chronic diastolic (congestive) heart failure; Z71.6 Tobacco abuse counseling; I08.3 Combined rheumatic disorders of mitral, aortic and tricuspid valves; E87.6 Hypokalemia; I73.9 Peripheral vascular disease, unspecified
CPT/HCPCS: 36415; 36600; 71010; 80048; 80076; 80162; 82550; 82553; 82803; 82947; 83605; 83735; 83880; 83930; 83935; 84100; 84300; 84443; 84484; 84550; 85025; 85027; 85379; 85610; 85730; 87040; 90732; 93005; 93306; 93922; 93971; 94640; 94760; 96365; 96366; 97116; 97162; 97166; 97535; 99285; G0009; G8978-GP; G8979-GP; G8987-GO; G8988-GO; J1160; J1815; J1940; J2920; J2930